=== PATIENT | female | born 1985 | race Caucasian/White ===

== ENCOUNTER 2021-02-23 14:59 | Outpatient (REF) | payer OTHER, SELFPAY ==
[2021-02-23 16:42] LABS: HCG Quantitative < 2 mIU/mL; Thyroid Stimulating Hormone 1.46 uIU/mL (0.32-4.0)
[2021-02-24 04:19] LABS: Syphilis Screen Nonreactive (Nonreactive)
[2021-02-24 04:25] LABS: HBc Num1 0.05 S/CO (0.00-0.79); Hepatitis B Core Antibody Nonreactive (Nonreactive); ~HepC Num1 0.06 S/CO (0.00-0.79); ~Hepatitis C Antibody Nonreactive (Nonreactive)
[2021-02-24 04:27] LABS: HIV AB/AG Nonreactive (Nonreactive); HIV Num 1 0.06 S/CO (0.00-0.99)
[2021-02-24 04:52] LABS: CT PCR NOT DETECTED (Not Detect.); NG PCR NOT DETECTED (Not Detect.)
[2021-02-24 15:26] LABS: DHEA Sulfate 196 mcg/dL (23-266)
[2021-02-24 15:51] LABS: Prolactin 9.1 ng/mL
[2021-02-27 16:51] LABS: Testosterone, Free 7.9 pg/mL (0.1-6.4); Testosterone, Total 60 ng/dL (2-45)
[2021-02-28 14:07] LABS: HPV mRNA E6/E7 rflx Not Detected (Not Detected)
== END 2021-02-23 15:00 | disposition home or self-care (01) ==
LOC: HO.LAB 14:59
PROVIDERS: PCP Internal Medicine; Visit Provider Advanced Practice Midwife
DX: Z01.411 Encounter for gynecological examination (general) (routine) with abnormal findings (principal); Z11.51 Encounter for screening for human papillomavirus (HPV); N92.6 Irregular menstruation, unspecified; Z20.2 Contact with and (suspected) exposure to infections with a predominantly sexual mode of transmission
CPT/HCPCS: 36415; 82627; 83498; 84146; 84402; 84403; 84443; 84702; 86704; 86780; 86803; 87389; 87491; 87591; 87624; 88142

== ENCOUNTER 2021-03-01 15:50 | Outpatient (REF) | payer OTHER, SELFPAY ==
--- NOTE | ~2021-03-01 | US_ITS ---
EXAMINATION: US PELVIS ULTRASOUND CLINICAL INFORMATION: Irregular menstruation, N92.6. Age 35. LMP 01/09/2021. COMPARISON: Obstetrical ultrasound 07/04/2007. TECHNIQUE: Ultrasound of the pelvis is performed using both transabdominal and transvaginal transducers along with Doppler. Transvaginal imaging is performed due to inadequate visualization transabdominally. FINDINGS: Uterus: The uterus is anteverted and measures 10.2 x 3.2 x 3.9 cm. The double wall endometrial thickness is 6 mm. The uterus is smooth in contour and has normal myometrial echogenicity. No visible fibroid. The endometrial echogenicity is homogeneous. No fluid in uterine cavity. Adnexa: Both ovaries are visualized. There is normal color flow to the adnexa. There is no ovarian torsion. There is no pelvic ascites or fluid collection. Right ovary measures 3.4 x 1.6 x 1.8 cm. Volume 5 mL. Left ovary measures 1.9 x 1.5 x 1.5 cm. Volume 2 mL. US/US pelvic and transvaginal IMPRESSION: Normal study.
== END 2021-03-01 15:51 | disposition home or self-care (01) ==
LOC: HO.US 15:50
PROVIDERS: PCP Internal Medicine; Visit Provider Advanced Practice Midwife
DX: N92.6 Irregular menstruation, unspecified (principal)
CPT/HCPCS: 76830; 76856

== ENCOUNTER → 2021-03-09 11:46 | Outpatient (BNVA) | payer OTHER, SELFPAY | PROVIDERS: PCP Internal Medicine; Visit Provider Advanced Practice Midwife ==

== ENCOUNTER → 2021-08-09 10:57 | Outpatient (BNVA) | payer OTHER, SELFPAY | PROVIDERS: Visit Provider Advanced Practice Midwife | DX: Z30.41 Encounter for surveillance of contraceptive pills (principal) | CPT/HCPCS: 99212 ==

== ENCOUNTER 2021-10-26 08:35 | Outpatient (REF) | payer OTHER, SELFPAY ==
[2021-10-26 08:56] LABS: COVID-19 Test Negative (Negative); IDNOW Serial# 16C4AD1C
== END 2021-10-26 08:36 | disposition home or self-care (01) ==
LOC: HO.LAB 08:35
PROVIDERS: Visit Provider Internal Medicine
DX: Z20.822 Contact with and (suspected) exposure to COVID-19 (principal)
CPT/HCPCS: 87635; C9803

== ENCOUNTER 2021-10-30 09:52 | Outpatient (REF) | payer OTHER, SELFPAY ==
[2021-10-30 10:19] LABS: Binax Internal Control QC Valid; Binax Now Covid-19 Ag Positive (Negative)
== END 2021-10-30 09:53 | disposition home or self-care (01) ==
LOC: HO.LAB 09:52
PROVIDERS: Visit Provider Internal Medicine
DX: Z20.822 Contact with and (suspected) exposure to COVID-19 (principal)
CPT/HCPCS: C9803

== ENCOUNTER 2022-04-19 14:48 | Outpatient (REF) | payer OTHER, SELFPAY ==
[2022-04-20 04:58] LABS: CT PCR NOT DETECTED (Not Detect.); NG PCR NOT DETECTED (Not Detect.)
== END 2022-04-19 14:49 | disposition home or self-care (01) ==
LOC: HO.LAB 14:48
PROVIDERS: Visit Provider Advanced Practice Midwife
DX: Z20.2 Contact with and (suspected) exposure to infections with a predominantly sexual mode of transmission (principal)
CPT/HCPCS: 87491; 87591

== ENCOUNTER 2023-06-26 10:04 | Outpatient (REF) | payer OTHER, SELFPAY ==
[2023-06-26 18:35] LABS: CT PCR NOT DETECTED (Not Detect.); NG PCR NOT DETECTED (Not Detect.)
[2023-06-27 14:30] LABS: BV Int Neg Control Negative (Negative); BV Int Pos Control Positive (Positive)
== END 2023-06-26 10:05 | disposition home or self-care (01) ==
LOC: HO.LAB 10:04
PROVIDERS: PCP Internal Medicine; Visit Provider Advanced Practice Midwife
DX: Z20.2 Contact with and (suspected) exposure to infections with a predominantly sexual mode of transmission (principal); N92.6 Irregular menstruation, unspecified; E28.2 Polycystic ovarian syndrome
CPT/HCPCS: 0353U; 87480; 87510; 87660; 99395

== ENCOUNTER 2023-06-26 10:04 | Outpatient (AMB) | payer OTHER, SELFPAY ==
--- NOTE | 2023-06-26 10:06 | MHC.OFFVIS ---
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 Scribed for TINY Hastings by Hannah Bajwa medical services assistant, on 06/26/2023 at 10:17 am EST Supervisor Industrial Garment: Supervisor Industrial Garment Present (Erna) Allergies No Known Allergies Allergy (Verified 06/26/23 10:06) Is last menstrual period known: Yes Last menstrual period: 06/17/23 HPI HPI Comments History of Present Illness Details She is a premenopausal woman presenting for annual exam. Doing well with no tool trouble shooter concerns. She admits to eating healthy and tries to stay active with exercise. Currently sexually active. She in not interested in BC and is interested in future . Hx of PCOS, skips menses up to 3 months, currently her cycles are regular. Denies vaginal itching and irritation. STD screening offered; she accepts. Denies family hx of breast, colon and ovarian cancer. Last pap smear 02/23/21. 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[employer] Gender identity: Female Female Reproductive History Menstrual Age of Menarche: 15 Duration of menses: 3-5 days Date of last menstrual period: 06/17/23 Total pregnancies: 1 Full term: 1 Number of Living Children: 1 Date of last pap smear: 02/23/21 (neg pap and hpv) Physical Exam Vital Signs: Last Vital Signs BP 100/64 06/26/23 10:07 BMI result Body Mass Index 32.3 Const General: cooperative, healthy appearing, no acute distress, well developed and alert Orientation/consciousness: patient oriented x3 HEENT Head: Yes normal to inspection Eyes General: appearance normal, both eyes and all related structures Neck Neck: Yes normal visual inspection Thyroid: Thyroid normal Chest Chest palpation & inspection: normal inspection of the chest Breast/axilla inspection: normal inspection of the breasts (no puckering, dimpling, peau de orange, retraction, discharge, masses) Breast/axilla palpation: normal palpation of the breasts Resp Effort & Inspection: normal respiratory effort GI Inspection: Yes normal to inspection Palpation (GI): Soft to palpation (to palpation) Rectal Exam - Female: deferred General: Yes bladder normal to inspection External Female Exam: normal external appearance and normal appearance of the urethra Speculum Exam - Vagina: normal appearance of the vagina, normal palpation and abnormal vaginal discharge white and frothy Speculum Exam - Cervix: normal appearance of the cervix and normal palpation Bimanual exam- vagina & uterus: normal palpation and normal palpation Bimanual Exam- Adnexa, other: normal adnexae and no masses Skin General skin exam: no rashes or lesions noted Neuro General: patient oriented x3 Cognition (Neuro): normal cognition Extrem General: Yes normal to inspection Psych Attitude: cooperative Thought process: Normal thought process present Assessment & Plan Assessment & Plan (1) Encounter for well woman exam: Code(s): Z01.419 - Encounter for gynecological examination (general) (routine) without abnormal findings Plan: Discussed: Current recommendations for pap smears per ASCCP guidelines. Breast awareness and periodic self breast exams. Maintaining a healthy lifestyle including a well balanced diet and routine exercise. All of her questions and concerns were addressed to the best of my ability. RTO in one year for AG. (2) Pre-conception counseling: Code(s): Z31.69 - Encounter for other general counseling and advice on procreation Plan: Start PNV. Rx sent to pharmacy. Monitor menses and ovulation to help plan future . If missed menses, take at home test. If positive RTO for further evaluation. Check regular monthly home PT testing. (3) Irregular menses: Code(s): N92.6 - Irregular menstruation, unspecified Plan: Rx sent to pharmacy. Discussed importance of cycles <3months apart. Use and frequency of Provera for the prevention of hyperplasia, atypia and possible uterine cancer with chronic annovulatory cycles. (4) Potential exposure to STD: Code(s): Z20.2 - Contact with and (suspected) exposure to infections with a predominantly sexual mode of transmission Plan: BV testing and GC/CT panel done today. Await results and treat accordingly. (5) PCOS (polycystic ovarian syndrome): Code(s): E28.2 - Polycystic ovarian syndrome Orders: Orders Bacterial Vaginosis Panel Today Z20.2 - Contact with and (suspected) exposure to infections with a predominantly sexual mode of transmission CT NG by PCR Today Z20.2 - Contact with and (suspected) exposure to infections with a predominantly sexual mode of transmission Medications: New medroxyprogesterone (Provera) 10 mg PO DAILY 10 days 10 tabs 6RF Refilled PN [id number] 400 mcg-35 mg- 25 mg-5 mg ( Gummies) 1 tab PO DAILY 90 tabs 4RF Coding Level of Care Code Est Pt Prev Care 18-39y(25076) Diagnoses Encounter for well woman exam Z01.419 Pre-conception counseling Z31.69 Irregular menses N92.6 Potential exposure to STD Z20.2 PCOS (polycystic ovarian syndrome) E28.2
[2023-06-26 10:07] VITALS: BP 100/64; BMI 32.3
== END 2023-06-26 10:33 | disposition home or self-care (01) ==
PROVIDERS: PCP Internal Medicine; Visit Provider Advanced Practice Midwife
DX: Z01.419 Encounter for gynecological examination (general) (routine) without abnormal findings (principal); Z31.69 Encounter for other general counseling and advice on procreation; N92.6 Irregular menstruation, unspecified; Z20.2 Contact with and (suspected) exposure to infections with a predominantly sexual mode of transmission; E28.2 Polycystic ovarian syndrome
CPT/HCPCS: 99395

== ENCOUNTER 2023-06-26 10:27 | Outpatient (REF) | payer OTHER, SELFPAY | END 2023-06-26 10:28 | disposition home or self-care (01) | LOC: HO.LNP 10:27 | PROVIDERS: Visit Provider Advanced Practice Midwife | DX: Z13.89 Encounter for screening for other disorder (principal) ==

== ENCOUNTER 2023-07-12 07:56 | Outpatient (REF) | payer OTHER, SELFPAY ==
[2023-07-12 09:20] LABS: Alanine Aminotransferase 38 U/L (0-31); Albumin Level 4.3 g/dL (3.5-5.0); Alkaline Phosphatase 90 U/L (39-117); Anion Gap 15 (12-20); Aspartate Amino Transferase 30 U/L (5-31); Bilirubin Total 1.1 mg/dL (0.0-1.0); Blood Urea Nitrogen 10 mg/dL (9-16); Calcium 9.8 mg/dL (8.4-10.2); Carbon Dioxide 25 mmol/L (22-29); Chloride 104 mmol/L (96-108); Cholesterol 204 mg/dL (<200); Estimated Glomerular Filt Rate > 60; Glucose Random 144 mg/dL (60-115); HDL Cholesterol 48 mg/dL (>40); LDL Cholesterol Calculated 134 mg/dL (<100); Potassium 4.3 mmol/L (3.3-5.1); Sodium 140 mmol/L (135-145); Total Protein 7.7 g/dL (6.5-8.0); Triglycerides 110 mg/dL (<150)
[2023-07-12 09:38] LABS: TSH reflex Free T4 0.98 uIU/mL (0.32-4.0); Vitamin D 25-OH Total 23.4 ng/mL (>30)
== END 2023-07-12 07:57 | disposition home or self-care (01) ==
LOC: HO.LAB 07:56
PROVIDERS: PCP Internal Medicine; Visit Provider Nurse Practitioner Family
DX: Z13.21 Encounter for screening for nutritional disorder (principal); Z13.0 Encounter for screening for diseases of the blood and blood-forming organs and certain disorders involving the immune mechanism; Z13.29 Encounter for screening for other suspected endocrine disorder; E78.00 Pure hypercholesterolemia, unspecified; N39.0 Urinary tract infection, site not specified
CPT/HCPCS: 36415; 80053; 80061; 81001; 82306; 84443; 85025

== ENCOUNTER 2023-09-18 10:41 | Outpatient (AMB) | payer OTHER, SELFPAY ==
[2023-09-18 10:55] VITALS: BP 112/84; PULSE 78; BMI 31.5
--- NOTE | 2023-09-18 10:55 | A.OFFPC_ITS ---
Vital Signs 09/18/23 10:55 Height 5 ft 5 in Weight 189 lb 8 oz BMI 31.5 BP 112/84 Blood Pressure Location Lt brachial Position Sitting Pulse 78 Pulse Source Palpation Intake Visit Reasons: High Fasting Blood Sugar Intake Note: Pt is here for lab F/U. 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 Required: No Accompanied by: Self / Same As Patient Allergies No Known Allergies Allergy (Verified 09/18/23 11:16) Medication List - Last Reconciled 09/18/23 by Carlton Carson PA-C medroxyprogesterone (Provera) 10 mg PO DAILY 10 days [id number] acid 29 mg iron- 1 mg ( 19) 1 tab PO DAILY 90 days sertraline 50 mg (1/2 x 100 mg) PO DAILY 90 days sulfamethoxazole-trimethoprim 800-160 mg (Bactrim DS) 1 tab PO BID Tobacco use date assessed: 09/18/23 Dental Screening Dental Screen Date: 09/18/23 Did you have a dental visit in the last 12 months?: Yes Did you have a dental problem in the last 6 months where you did not have access to dental care?: No Was dental information given to patient?: Patient has dentist HPI High Fasting Blood Sugar HPI Details Patient is a 38-year-old female here today for problem visit. Believes her fasting blood sugar was elevated though this was a random blood sugar at 144. A1c-5.6 acceptable not in the diabetic range. She does have PCOS and has elevated testosterone. Fortunately has lost weight since last office visit. [facility] Medical History PCOS (polycystic ovarian syndrome) Obesity (BMI 30-39.9) Irregular menses Anxiety and depression Vitamin D deficiency Hypercholesterolemia Gestational diabetes Kawasaki disease Surgical History No history of previous surgery Family History Mother Hypertension Anxiety Father Diabetes Social History Housing: Apartment Alcohol intake: current Alcohol intake frequency: holidays/special occasions only Patient Tobacco Use Status: Never used Tobacco e-Cigarette/Vaping Use: Never Used Substance Use Type: Marijuana Current occupational status: employed 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 1. Little interest or pleasure in doing things: not at all 2. Feeling down, depressed, or hopeless: not at all 3. Trouble falling or staying asleep, or sleeping too much: not at all 4. Feeling tired or having little energy: not at all 5. Poor appetite or overeating: not at all 6. Feeling bad about yourself - or that you are a failure or have let yourself or your family down: not at all 7. Trouble concentrating on things, such as reading the newspaper or watching television: not at all 8. Moving or speaking so slowly that other people could have noticed. Or the opposite - being so fidgety or restless that you have been moving around a lot more than usual: not at all 9. Thoughts that you would be better off or of hurting yourself in some way: not at all Total score: 0 Depression Screening Interpretation: Negative Depression Screening Done: Yes 09327 - PHQ-9 Billing: Yes Source: Developed by Drs. Anselmo Davenport, Adalgisa Kelsey, Vicente Stephens and colleagues, with an educational cuate from [employer]. Thrive Questionnaire Date Thrive assessed: 09/18/23 I am a: Patient What is your living situation today?: I have a steady place to live Within the past 12 months, did the food you bought not last and you didn't have the money to get more?: Never true Within the past 12 months, did you worry whether your food would run out before you got money to buy more?: Never true Do you have trouble paying for medicines?: No Do you have trouble getting transportation to medical appointments?: No Do you have trouble paying your heating and electricity bill?: No Do you have trouble taking care of your child, family member or friend?: No Do you have trouble with day-to-day activities such as bathing, preparing meals, shopping, managing finances, etc.?: No Are you currently unemployed and looking for a job?: No Are you interested in more education?: No Please select the resources that you would like help with: None Currently or been in a relationship where the following occur: no concerns reported AUDIT C Alcohol Use Questionnaire (AUDIT-C) 1. How often do you have a drink containing alcohol?: Monthly or less 2. How many drinks containing alcohol do you have on a typical day when you are drinking?: 1 or 2 Total Score: 1 DIO-7 AMB Questionnaire DIO-7 Date IDO - 7 assessed: 09/18/23 Feeling nervous, anxious, or on edge: 0 = Not at all Not being able to stop or control worryin = Not at all Worrying too much about different things: 0 = Not at all Trouble relaxin = Not at all Being so restless that it is hard to sit still: 0 = Not at all Becoming easily annoyed or irritable: 0 = Not at all Feeling afraid as if something awful might happen: 0 = Not at all Total DIO-7 score (0-4 normal; 5-9 mild; 10-14 moderate; 15-21 severe): 0 Source: Developed by Drs. Anselmo Davenport, Adalgisa Kelsey, Vicente Stephens and colleagues, with an educational cuate from [employer]. DIO-7 Assessment Billing DIO-7 Assessment Tool: DIO-7 Assessment 92085 Review of Systems Const Denies headache(s) Eyes Denies loss of vision ENT Denies vertigo, Denies dizziness, Denies headache(s) and Denies sore throat Card Denies chest pain, Denies leg edema and Denies lightheadedness Resp Denies cough, Denies hemoptysis and Denies wheezing GI Denies abdominal pain, Denies melena, Denies constipation, Denies diarrhea and Denies vomiting Denies urinary frequency, Denies dysuria and Denies urinary urgency Musc Denies arthralgias, Denies joint swelling, Denies numbness and Denies tingling Neuro Denies Abnormal speech present, Denies behavioral changes, Denies vertigo, Denies dizziness, Denies headache(s), Denies loss of vision, Denies memory loss, Denies numbness and Denies tingling Psych Denies anxiety, Denies behavioral changes, Denies depression, Denies memory loss and Denies panic attacks Subhash/Lymph Denies easy bleeding and Denies easy bruising Aller/Immun Denies wheezing Physical exam (Primary Care) Vital Signs: Last Vital Signs Pulse 78 09/18/23 10:55 BP 112/84 09/18/23 10:55 BMI result Body Mass Index 31.5 Tobacco/Smoking Status: Tobacco use Status Tobacco use date assessed 09/18/23 09/18/23 11:01 Patient Tobacco Use Status Never used Tobacco 09/18/23 10:56 Tobacco use type 06/26/23 10:28 e-Cigarette/Vaping Use Never Used 09/18/23 10:56 PHQ-9: PHQ-9 Score PHQ-9: Total score 0 09/18/23 11:01 Depression Screening Interpretation: Negative Thrive Assessment: Date of Thrive Assessment Date Thrive assessed 09/18/23 09/18/23 11:01 Currently or been in a relationship where the following occur: no concerns reported Const General: healthy appearing, no acute distress, alert and awake Nutritional Appearance: well nourished Orientation/consciousness: oriented to person, oriented to place and oriented to time HENMT Ears: TM's normal bilaterally General nose exam: Normal nasal mucous membranes and turbinates present Eyes Conjunctivae: conjunctivae normal Sclerae: sclerae normal Pupils: Equal, round and reactive pupils present Neck Neck: Yes no lymphadenopathy and Yes no JVD Thyroid: Thyroid normal Carotids: no bruits Resp Effort & Inspection: normal respiratory effort and not tachypneic Auscultation: no crackles, no rales, no rhonchi and no wheezes Cardio Rate: regular rate Rhythm: regular rhythm Heart sounds: no murmurs and normal S1 and S2 GI Palpation (GI): Soft to palpation, nontender, no hepatomegaly and no splenomegaly Auscultation: normal bowel sounds Skin General skin exam: no rashes or lesions noted and dry skin Neuro General: oriented to person, oriented to place and oriented to time Cranial nerves: Yes Equal, round and reactive pupils present Speech: No Abnormal speech present Gait exam (Neuro): Normal gait present Motor exam (neuro): no tremor noted Extrem Right upper extremity: full ROM Left upper extremity: full ROM Right lower extremity: full ROM; no edema Left lower extremity: full ROM; no edema Psych Mental Status: mental status grossly normal Speech and movement: Normal speech and movement present Affect: normal affect Attitude: cooperative Thought process: Normal thought process present Results AMB Hemoglobin A1c AMB Hemoglobin A1c 5.6 % Last Edit by JASVIR Garner on 09/18/23 11:03 Results Reviewed Results Reviewed: Laboratory Last Values Hgb A1c (Clinic) 5.6 % (4.0-6.0) 09/18/23 11:02 Assessment and Plan Assessment & Plan (1) Hypercholesterolemia: Code(s): E78.00 - Pure hypercholesterolemia, unspecified Plan: Most recent lipid panel showing borderline high total cholesterol. She does report she was not fasting for labs. Will reorder to get done before her upcoming annual physical fasting (2) Hyperglycemia: Code(s): R73.9 - Hyperglycemia, unspecified Plan: Most recent random blood sugar 144. A1c at 5.6. not in diabetic range. Advised to do fasting labs to evaluate fasting blood sugar Orders: Orders AMB Hemoglobin A1c Today R73.09 - Other abnormal glucose Comprehensive [place]. Panel Fast Today R73.9 - Hyperglycemia, unspecified Lipid Panel Today E78.00 - Pure hypercholesterolemia, unspecified Coding Level of Care Code Est Pt Level 3 (42320) Diagnoses Hypercholesterolemia E78.00 Hyperglycemia R73.9 Additional Codes DIO-7 Assessment Billing - DIO-7 Assessment Tool: DIO-7 Assessment 24116 ([id number])
== END 2023-09-18 11:23 | disposition home or self-care (01) ==
PROVIDERS: PCP Internal Medicine; Visit Provider Physician Assistant
DX: E78.00 Pure hypercholesterolemia, unspecified (principal); R73.9 Hyperglycemia, unspecified; R73.09 Other abnormal glucose
CPT/HCPCS: 83036; 99213

== ENCOUNTER 2023-09-27 08:04 | Outpatient (REF) | payer OTHER, SELFPAY ==
[2023-09-27 10:56] LABS: Alanine Aminotransferase 26 U/L (0-31); Albumin Level 4.4 g/dL (3.5-5.0); Alkaline Phosphatase 78 U/L (39-117); Anion Gap 11 (12-20); Aspartate Amino Transferase 21 U/L (5-31); Blood Urea Nitrogen 10 mg/dL (9-16); Calcium 9.5 mg/dL (8.4-10.2); Carbon Dioxide 29 mmol/L (22-29); Chloride 105 mmol/L (96-108); Cholesterol 206 mg/dL (<200); Estimated Glomerular Filt Rate > 60; Glucose Fasting 93 mg/dL (60-99); HDL Cholesterol 48 mg/dL (>40); LDL Cholesterol Calculated 137 mg/dL (<100); Potassium 3.8 mmol/L (3.3-5.1); Sodium 141 mmol/L (135-145); Total Protein 7.7 g/dL (6.5-8.0); Triglycerides 105 mg/dL (<150)
[2023-09-27 11:19] LABS: Vitamin D 25-OH Total 34.4 ng/mL (>30)
== END 2023-09-27 08:05 | disposition home or self-care (01) ==
LOC: HO.10HDL 08:04
PROVIDERS: Nurse Practitioner Family; Visit Provider Physician Assistant
DX: E78.00 Pure hypercholesterolemia, unspecified (principal); R73.9 Hyperglycemia, unspecified; E55.9 Vitamin D deficiency, unspecified
CPT/HCPCS: 36415; 80053; 80061; 82306

== ENCOUNTER 2023-10-01 13:32 | Outpatient (AMB) | payer OTHER, SELFPAY ==
[2023-10-01 13:36] VITALS: BP 116/84; PULSE 54; O2SAT 99; BMI 31.6
--- NOTE | 2023-10-01 13:36 | MHC.PC.OV ---
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 Required: No Accompanied by: Self / Same As Patient Allergies No Known Allergies Allergy (Verified 10/01/23 13:37) Medication List - Last Reconciled 10/01/23 by Conrad Simmons MD medroxyprogesterone (Provera) 10 mg PO DAILY 10 days [id number] acid 29 mg iron- 1 mg ( 19) 1 tab PO DAILY 90 days sertraline 50 mg (1/2 x 100 mg) PO DAILY 90 days Tobacco use date assessed: 09/18/23 Dental Screening Dental Screen Date: 10/01/23 Did you have a dental visit in the last 12 months?: Yes Did you have a dental problem in the last 6 months where you did not have access to dental care?: No Was dental information given to patient?: Patient has dentist HPI Annual Exam HPI Details 38-year-old obese female with hypercholesterolemia and generalized anxiety disorder coming in for physical exam last seen in January 2021. [facility] Medical History (Updated 10/01/23 @ 14:25 by Conrad Simmons MD) Hyperglycemia Encounter to discuss test results Potential exposure to STD Encounter for annual routine gynecological examination PCOS (polycystic ovarian syndrome) Obesity (BMI 30-39.9) Irregular menses Anxiety and depression Vitamin D deficiency Hypercholesterolemia Gestational diabetes Kawasaki disease Surgical History No history of previous surgery Family History Mother Hypertension Anxiety Father Diabetes Social History (Updated 10/01/23 @ 14:26 by Conrad Simmons MD) Housing: Apartment Alcohol intake: current Alcohol intake frequency: holidays/special occasions only Comment: holiday 2 drinks Patient Tobacco Use Status: Never used Tobacco Years Smoked: MArijuana e-Cigarette/Vaping Use: Never Used Substance Use Type: Marijuana Current occupational status: employed 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 Anselmo Davenport, Adalgisa Kelsey, Vicente Stephens and colleagues, with an educational cuate from [employer]. Review of Systems Const Denies poor appetite and Denies weakness Eyes Denies no additional complaints ENT Reports Normal hearing present, Denies dizziness, Denies nasal congestion, Denies tinnitus and Denies sore throat Card Denies chest pain, Denies syncope, Denies rapid heart rate and Denies dyspnea Resp Denies cough and Denies dyspnea GI Denies change in stool character, Reports constipation, Denies diarrhea, Denies nausea and Denies vomiting Denies urinary frequency, Denies difficulty voiding and Denies dysuria Neuro Reports Normal hearing present, Denies confusion, Denies dizziness, Denies syncope and Denies weakness Psych Denies confusion Physical exam (Primary Care) Vital Signs: Last Vital Signs Pulse 54 10/01/23 13:36 BP 116/84 10/01/23 13:36 Pulse Ox 99 10/01/23 13:36 Oxygen Delivery Method Room Air 10/01/23 13:36 BMI result Body Mass Index 31.6 Tobacco/Smoking Status: Tobacco use Status Tobacco use date assessed 09/18/23 10/01/23 13:41 Patient Tobacco Use Status Never used Tobacco 10/01/23 13:41 Tobacco use type 06/26/23 10:28 e-Cigarette/Vaping Use Never Used 10/01/23 13:41 Thrive Assessment: Date of Thrive Assessment Date Thrive assessed 09/18/23 10/01/23 13:41 Const General: No confusion Orientation/consciousness: No confusion HENMT Head: Yes normocephalic Ears: external ears normal and TM's normal bilaterally Face and sinus: Yes normal facial exam Mouth: moist mucous membranes Throat: Yes tonsils normal Eyes Conjunctivae: conjunctivae normal Pupils: Equal, round and reactive pupils present and Pupil accommodation reflex normal Direct Ophthalmoscopy: normal light reflex Neck Neck: No lymphadenopathy Thyroid: Thyroid normal Chest Chest palpation & inspection: normal inspection of the chest Resp Effort & Inspection: normal respiratory effort and no audible wheezes Auscultation: clear to auscultation bilaterally, no crackles, no wheezes and lung sounds not diminished Cardio Rate: regular rate Rhythm: regular rhythm Peripheral pulses: radial pulses present and dorsalis pedis present GI Palpation (GI): no masses Auscultation: normal bowel sounds and normoactive bowel sounds Rectal Exam - Female: deferred Skin General skin exam: no rashes or lesions noted Rashes: no rashes Neuro General: No confusion Cranial nerves: Yes Equal, round and reactive pupils present and Yes Normal hearing present Cognition (Neuro): normal cognition Gait exam (Neuro): Normal gait present Motor exam (neuro): 5/5 motor strength present throughout Deep tendon reflexes (DTR's): Right brachioradialis reflex intensity grade: 2+, Left brachioradialis reflex intensity grade: 2+, Right patellar reflex intensity grade: 2+ and Left patellar reflex intensity grade: 2+ Extrem General: No edema Office Procedures Flu Questionnaire Does the patient have a severe egg allergy?: No Does the patient have severe life threatening allergies?: No Does the patient have a fever or illness today?: No Has the patient ever had Guillain-[place] Syndrome?: No Has the patient ever had any past reaction to a flu shot?: No Immunizations flu vacc [id number] 6mos up(PF) 60 mcg(15 mcgx4)/0.5 mL IM syringe Performing Provider: Conrad Simmons MD [facility] Administered by: Anabel Turk CMA on 10/01/23 13:45 Dose Route Admin Location Dispensed Lot Number Expiration Date NDC Director Of Professional Services 0.5 mL IM Left Deltoid 0.5 mL [id number] 04/05/24 [id number] 3Funnel VIS Given Date VIS Provided VIS Publication Date 10/01/23 Single Vaccine 21 Eligibility Eligibility Date Funding Source Not [facility] Eligible 10/01/23 Private Assessment and Plan Assessment & Plan (1) Annual physical exam: Code(s): Z00.00 - Encounter for general adult medical examination without abnormal findings (2) Obesity (BMI 30-39.9): Code(s): E66.9 - Obesity, unspecified Plan: Diet and exercise (3) Hypercholesterolemia: Code(s): E78.00 - Pure hypercholesterolemia, unspecified Plan: Avoid fried foods, chicken skin, eggs, butter margarine, pastries and meat. Be it pork or beef they have a lot of cholesterol LDL goal of less than 130 and triglyceride of less than 150 (4) PCOS (polycystic ovarian syndrome): Code(s): E28.2 - Polycystic ovarian syndrome Orders: Orders Influenza [id number] Immunization Today Z23 - Encounter for immunization Coding Level of Care Code Est Pt Prev Care 18-39y(36785) Diagnoses Annual physical exam Z00.00 Obesity (BMI 30-39.9) E66.9 Hypercholesterolemia E78.00 PCOS (polycystic ovarian syndrome) E28.2
== END 2023-10-01 14:35 | disposition home or self-care (01) ==
PROVIDERS: Visit Provider Internal Medicine
DX: Z00.00 Encounter for general adult medical examination without abnormal findings (principal); Z68.31 Body mass index [BMI] 31.0-31.9, adult; E66.9 Obesity, unspecified; Z23 Encounter for immunization; E78.00 Pure hypercholesterolemia, unspecified; E28.2 Polycystic ovarian syndrome
CPT/HCPCS: 90471; 90686; 99395

== ENCOUNTER 2024-05-08 09:34 | Emergency (ER) | payer OTHER, SELFPAY ==
[2024-05-08 09:36] VITALS: BP 129/75; PULSE 84; RESP 16; TEMP 36.6; O2SAT 99; BMI 31.4
[2024-05-08 10:01] LABS: MANUAL DIFF FLAG NO
[2024-05-08 10:02] LABS: UPreg QC Valid YES
[2024-05-08 10:03] LABS: Urine Pregnancy NEGATIVE (NEGATIVE)
[2024-05-08 10:04] LABS: Basophils Absolute Auto 0.1 X10*3/uL (0.0-0.2); Basophils Percent Auto 0.9 % (0-2); Eosinophils Absolute Auto 0.3 X10*3/uL (0.0-0.4); Eosinophils Percent Auto 3.2 % (0-4); Hematocrit 39.8 % (37.0-47.0); Hemoglobin 13.5 g/dl (12.0-16.0); Imm Gran Abs Auto 0.02 X10*3/uL (0.00-0.03); Imm Gran Pct Auto 0.3 % (0.0-0.4); Lymphocytes Absolute Auto 2.4 X10*3/uL (1.2-4.9); Lymphocytes Percent Auto 30.6 % (20-40); Mean Corpuscular HGB Conc 33.9 g/dl (31.0-35.0); Mean Corpuscular Hemoglobin 29.4 pg (27.0-33.0); Mean Corpuscular Volume 86.7 fL (80.0-98.0); Mean Platelet Volume 9.3 fL (9.4-12.3); Monocytes Absolute Auto 0.5 X10*3/uL (0.1-1.2); Monocytes Percent Auto 6.6 % (2-11); Neutrophils Absolute Auto 4.6 x10*3/uL (2.0-8.3); Neutrophils Percent Auto 58.4 % (45-73); Platelet Count 325 X10*3/uL (160-400); Red Blood Count 4.59 X10*6/uL (4.20-5.50); White Blood Count 7.8 X10*3/uL (4.8-10.8)
--- NOTE | 2024-05-08 10:06 | ED_ITS ---
HPI - General Adult General Chief complaint: Vaginal Bleeding Stated complaint: vaginal bleeding Time Seen by Provider: 05/08/24 10:02 History of Present Illness HPI narrative: Patient complains of heavy vaginal bleeding for 1 day Yesterday she was changing a pad every 2 or 3 hours but this morning she woke up and has been changing the pad every 1/2 hour She denies any dizziness or weakness, she has no pelvic or abdominal pain, she does not believe she is she has no burning on urination Related Data Previous Rx's ?Medication ?Instructions ?Recorded medroxyprogesterone 10 mg tablet 10 mg PO DAILY 10 days #10 tabs 06/26/23 (Provera) vitamin no.115-iron 29 1 tab PO DAILY 90 days #90 tabs 06/27/23 mg-folic acid 1 mg chewable tablet ( 19) sertraline 100 mg tablet 50 mg (1/2 x 100 mg) PO DAILY 90 12/03/23 days #45 tabs Allergies Allergy/AdvReac Type Severity Reaction Status Date / Time No Known Allergies Allergy Verified 05/08/24 09:39 [facility] Past Medical History Source: nursing notes reviewed Medical History (Updated 05/08/24 @ 11:34 by NARESH Larson) Hyperglycemia Encounter to discuss test results Potential exposure to STD Encounter for annual routine gynecological examination PCOS (polycystic ovarian syndrome) Obesity (BMI 30-39.9) Irregular menses Anxiety and depression Vitamin D deficiency Hypercholesterolemia Gestational diabetes Kawasaki disease Surgical History No history of previous surgery Family History Family History Mother Hypertension Anxiety Father Diabetes Social History Social History (Updated 10/01/23 @ 14:26 by Conrad Simmons MD) Housing: Apartment Alcohol intake: current Alcohol intake frequency: holidays/special occasions only Comment: holiday 2 drinks Patient Tobacco Use Status: Never used Tobacco Years Smoked: MArijuana e-Cigarette/Vaping Use: Never Used Substance Use Type: Marijuana Advance Directives: No Advance Directives Information Provided: Yes Current occupational status: employed 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 [employer] Gender identity: Female Cognitive needs: No Hearing needs: No Vision needs: No Physical Exam ED Vital Signs: Vital Signs - 24 hr 05/08/24 09:36 Temperature 97.8 F Pulse Rate 84 Respiratory Rate 16 Blood Pressure 129/75 Pulse Oximetry 99 Oxygen Delivery Method Room Air BMI result Body Mass Index 31.4 General appearance comfortable cooperative no acute distress Eyes no pallor Mucous membranes are moist Neck is supple Respiratory no distress Abdomen soft nontender Pelvic exam there is no tenderness in the pelvis Speculum exam shows blood in the vault but it is not hemorrhaging or spilling from the vault Bimanual exam no mass felt, there is no pelvic tenderness no adnexal mass palpated Skin no rash Extremities full range motion times 4 Course Course Course Narrative: Patient remains with stable vital signs repeated just prior to discharge all normal, clinically stable test is negative, UA is negative Chemistries normal CBC shows hemoglobin 13.5 and hematocrit 39.8 consistent with previous, platelets 325 Patient is discharged will call her popcorn candy maker and return if worse Medical Decision Making Lab Data MDM Lab Attestation statement: I reviewed the patient's lab results. 05/08/24 09:50 05/08/24 09:50 Labs: Lab Results 05/08/24 Range/Units 09:50 WBC 7.8 (4.8-10.8) X10*3/uL RBC 4.59 (4.20-5.50) X10*6/uL Hgb 13.5 (12.0-16.0) g/dl Hct 39.8 (37.0-47.0) % MCV 86.7 (80.0-98.0) fL MCH 29.4 (27.0-33.0) pg MCHC 33.9 (31.0-35.0) g/dl RDW 13.0 (11.0-16.0) % Plt Count 325 (160-400) X10*3/uL MPV 9.3 L (9.4-12.3) fL Immature Gran % (Auto) 0.3 (0.0-0.4) % Neut % (Auto) 58.4 (45-73) % Lymph % (Auto) 30.6 (20-40) % [place] % (Auto) 6.6 (2-11) % Eos % (Auto) 3.2 (0-4) % Baso % (Auto) 0.9 (0-2) % Lymph # (Auto) 2.4 (1.2-4.9) X10*3/uL [place] # (Auto) 0.5 (0.1-1.2) X10*3/uL Eos # (Auto) 0.3 (0.0-0.4) X10*3/uL Baso # (Auto) 0.1 (0.0-0.2) X10*3/uL Abs Immat Gran (auto) 0.02 (0.00-0.03) X10*3/uL Absolute Neuts (auto) 4.6 (2.0-8.3) x10*3/uL Absolute Nucleated RBC 0.000 (0.0-0.012) X10*3/uL Nucleated RBC % (auto) 0.0 (0.0-0.2) /100WBC Sodium 142 (135-145) mmol/L Potassium 3.8 (3.3-5.1) mmol/L Chloride 106 (96-108) mmol/L Carbon Dioxide 27 (22-29) mmol/L Anion Gap 13 (12-20) BUN 11 (9-16) mg/dL Creatinine 0.69 (0.5-1.4) mg/dL Estim Creat Clear Calc 121.7 Estimated GFR > 60 Random Glucose 104 (60-115) mg/dL Calcium 10.0 (8.4-10.2) mg/dL Total Bilirubin 0.8 (0.0-1.0) mg/dL AST 30 (5-31) U/L ALT 43 H (0-31) U/L Alkaline Phosphatase 87 (39-117) U/L Total Protein 7.7 (6.5-8.0) g/dL Albumin 4.4 (3.5-5.0) g/dL Beta HCG, Quant < 2 mIU/mL Urine Color Red A Urine Appearance Turbid Urine pH 6.0 (5.0-9.0) Ur Specific [place] >= 1.030 H (1.005-1.025) Urine Protein 100 (2+) H (Neg-Trace) mg/dL Urine Glucose (UA) Negative (Negative) mg/dL Urine Ketones Negative (Negative) mg/dL Urine Blood Large (3+) H (Negative) Urine Nitrite Negative (Negative) Ur Leukocyte Esterase Negative (Negative) Urine RBC >20 H (0-2) /HPF Urine WBC 6-10 (0-5) /HPF Ur Squamous Epith Cells 3-5 (0-2) /HPF Urine Bacteria 1+ (None Seen) Hyaline Casts 0-2 (0-2) /LPF Urine Test NEGATIVE (NEGATIVE) Discharge Plan Discharge Clinical Impression: Vaginal bleeding Patient Disposition: Home, Self-Care Additional Instructions: Your vital signs were stable throughout the ER visit, no clinical signs of excess blood loss Your blood count was normal, hemoglobin was 13.5 and hematocrit was 39.8 Follow with your popcorn candy maker Signs of losing too much blood are feeling dizzy or weak or rapid racing pulse or feeling faint Return to the ER any time for any worse condition or any concerns Prescriptions: No Action 19 29 mg iron- 1 mg tablet,chewable 1 tab PO DAILY 90 Days Qty: 90 1RF sertraline 100 mg tablet 50 mg PO DAILY 90 Days Qty: 45 1RF medroxyprogesterone [Provera] 10 mg tablet 10 mg PO DAILY 10 Days Qty: 10 6RF Print Language: Urdu
[2024-05-08 10:09] LABS: Appearance Urine Turbid; Glucose Urine UA Negative (Negative); Leukocyte Esterase Urine Negative (Negative); Nitrite Urine Negative (Negative); Specific Gravity - Urine >= 1.030 (1.005-1.025); UMIC TRIGGER UACC YES; Urine Blood Large (3+) (Negative); Urine Ketones Negative (Negative); Urine Protein 100 (2+) mg/dL (Neg-Trace)
[2024-05-08 10:17] LABS: Color Urine Red
[2024-05-08 10:20] LABS: Bacteria Urine 1+ (None Seen); Hyaline Casts Urine 0-2 /LPF (0-2); RBC Urine >20 /HPF (0-2); UACC Culture Trigger YES
[2024-05-08 10:32] LABS: Alanine Aminotransferase 43 U/L (0-31); Albumin Level 4.4 g/dL (3.5-5.0); Alkaline Phosphatase 87 U/L (39-117); Anion Gap 13 (12-20); Aspartate Amino Transferase 30 U/L (5-31); Bilirubin Total 0.8 mg/dL (0.0-1.0); Blood Urea Nitrogen 11 mg/dL (9-16); Carbon Dioxide 27 mmol/L (22-29); Chloride 106 mmol/L (96-108); Creatinine Clr Calc Pharmacy 121.7; Estimated Glomerular Filt Rate > 60; Glucose Random 104 mg/dL (60-115); Potassium 3.8 mmol/L (3.3-5.1); Sodium 142 mmol/L (135-145); Total Protein 7.7 g/dL (6.5-8.0)
[2024-05-08 10:33] LABS: HCG Quantitative < 2 mIU/mL
[2024-05-08 11:21] VITALS: BP 123/77; PULSE 70; RESP 16; TEMP 37.2; O2SAT 96
[2024-05-08 11:41] VITALS: BP 123/77; PULSE 70; RESP 16; TEMP 37.2; O2SAT 96
== END 2024-05-08 11:42 | disposition home or self-care (01) ==
PROVIDERS: Emergency Provider Student in an Organized Health Care Education/Training Program; PCP Internal Medicine
DX: N93.9 Abnormal uterine and vaginal bleeding, unspecified (principal); E78.00 Pure hypercholesterolemia, unspecified; E11.9 Type 2 diabetes mellitus without complications; Z79.899 Other long term (current) drug therapy
CPT/HCPCS: 36415; 80053; 81001; 81003; 81025; 84702; 85025; 87086; 99283

== ENCOUNTER 2024-05-18 09:16 | Outpatient (REF) | payer OTHER, SELFPAY ==
[2024-05-19 11:36] LABS: Bacterial Vaginosis PCR POSITIVE (Negative); Candida Group PCR NOT DETECTED (Not Detect); Candida glab krusei PCR NOT DETECTED (Not Detect); Trichomonas vaginalis PCR NOT DETECTED (Not Detect)
[2024-05-19 11:45] LABS: CT PCR NOT DETECTED (Not Detect.); NG PCR NOT DETECTED (Not Detect.)
== END 2024-05-18 09:17 | disposition home or self-care (01) ==
LOC: HO.LAB 09:16
PROVIDERS: PCP Internal Medicine; Visit Provider Advanced Practice Midwife
DX: N89.8 Other specified noninflammatory disorders of vagina (principal); Z20.2 Contact with and (suspected) exposure to infections with a predominantly sexual mode of transmission; E28.2 Polycystic ovarian syndrome; N92.6 Irregular menstruation, unspecified; Z30.431 Encounter for routine checking of intrauterine contraceptive device; Z30.09 Encounter for other general counseling and advice on contraception
CPT/HCPCS: 0352U; 87491; 87591; 99212

== ENCOUNTER 2024-05-18 09:16 | Outpatient (AMB) | payer OTHER, SELFPAY ==
[2024-05-18 09:11] VITALS: BP 118/70; BMI 31.1
--- NOTE | 2024-05-18 09:11 | A.OFFVIS_ITS ---
Vital Signs 05/18/24 09:11 Height 5 ft 5 in Weight 187 lb BMI 31.1 BP 118/70 Intake Visit Reasons: Er follow up Car Mover Required: No Information Interpreted: clinical only Relief Master: Relief Master Present Allergies No Known Allergies Allergy (Verified 05/18/24 09:13) Medication List - Last Reconciled 05/18/24 by Marilyn Dyer CNM sertraline 50 mg (1/2 x 100 mg) PO DAILY 90 days Is last menstrual period known: Yes Last menstrual period: 05/12/24 Do you need a note to return to daycare/school/sports/work: No HPI HPI Er follow up: Details: Is here as follow-up from the emergency. She had a heavier than normal period, and went to the emergency room. They checked her hct and it was fine and said to follow-up with us, in addition she was not bleeding that have every on their speculum exam. She has a history of PCOS when she lost weight after having her child and c utting out soda and sugary drinks her periods came back to normal and she did not need to take Provera that was prescribed her some years ago. She normally sees Ary for her annual exams. She is not on control and does not really want to be her current partner who she has been seeing for the last few months has a vasectomy so she does not need control either and he has children and she has a child so she has decided she has good. [facility] Medical History (Updated 05/18/24 @ 09:57 by Marilyn Dyer CNM) Potential exposure to STD Hyperglycemia Encounter to discuss test results Encounter for annual routine gynecological examination PCOS (polycystic ovarian syndrome) Obesity (BMI 30-39.9) Irregular menses Anxiety and depression Vitamin D deficiency Hypercholesterolemia Gestational diabetes Kawasaki disease Surgical History No history of previous surgery Family History Mother Hypertension Anxiety Father Diabetes Social History Housing: Apartment Alcohol intake: current Alcohol intake frequency: holidays/special occasions only Comment: holiday 2 drinks Patient Tobacco Use Status: Never used Tobacco Years Smoked: MArijuana e-Cigarette/Vaping Use: Never Used Substance Use Type: Marijuana Current occupational status: employed 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 External Female Exam: normal external appearance and normal appearance of the urethra Speculum Exam - Vagina: normal appearance of the vagina Speculum Exam - Cervix: normal appearance of the cervix and Cervical os closed Results Reviewed Results Reviewed: [place] [id number] Ultrasound Report Signed Patient: Lupe Vazquez MR#: [id number] : 1985 Acct:[id number] Age/Sex: 35 / F ADM Date: 03/01/21 Loc: HO.US Attending Dr: Ary Duke CNM Ordering Physician: Ary Duke CNM Date of Service: 03/01/21 Procedure(s): US pelvic and transvaginal Accession Number(s): [id number] cc: Ary Duke CNM~ EXAMINATION: US PELVIS ULTRASOUND CLINICAL INFORMATION: Irregular menstruation, N92.6. Age 35. LMP 01/09/2021. COMPARISON: Obstetrical ultrasound 07/04/2007. TECHNIQUE: Ultrasound of the pelvis is performed using both transabdominal and transvaginal transducers along with Doppler. Transvaginal imaging is performed due to inadequate visualization transabdominally. FINDINGS: Uterus: The uterus is anteverted and measures 10.2 x 3.2 x 3.9 cm. The double wall endometrial thickness is 6 mm. The uterus is smooth in contour and has normal myometrial echogenicity. No visible fibroid. The endometrial echogenicity is homogeneous. No fluid in uterine cavity. Adnexa: Both ovaries are visualized. There is normal color flow to the adnexa. There is no ovarian torsion. There is no pelvic ascites or fluid collection. Right ovary measures 3.4 x 1.6 x 1.8 cm. Volume 5 mL. Left ovary measures 1.9 x 1.5 x 1.5 cm. Volume 2 mL. US/US pelvic and transvaginal IMPRESSION: Normal study. Dictated By: SARANYA MORALES MD Signed By: <Electronically signed by SARANYA MORALES MD in OV> 03/02/21 1859 DD/ 4543 TD/TT: Trial Mgr: RODRIGUEZ Name: Lupe Vazquez Age/Sex: 38/F : 1985 Unit#: [id number] Attend Dr: Guicho Yarbrough DO Re05/08/24 Status: [facility] Dis[facility]: SPEC : [id number] JACKY: 05/08/24 STATUS: COMP REQ : [id number] RECD: 05/08/24 [facility] DR: Guicho Yarbrough DO COMP: 05/08/24 ENTERED: 05/08/24 [facility] DR: Generic ED Physician Conrad Simmons MD ORDERED: CBC Auto Diff Test Result Flag Reference WBC 7.8 4.8-10.8 X10*3/uL RBC 4.59 4.20-5.50 X10*6/uL HGB 13.5 12.0-16.0 g/dl HCT 39.8 37.0-47.0 % MCV 86.7 80.0-98.0 fL MCH 29.4 27.0-33.0 pg MCHC 33.9 31.0-35.0 g/dl RDW 13.0 11.0-16.0 % PLT 325 160-400 X10*3/uL MPV 9.3 L 9.4-12.3 fL Neut Pct Auto 58.4 45-73 % ImGran Pct Auto 0.3 0.0-0.4 % Lymp Pct Auto 30.6 20-40 % [place] Pct Auto 6.6 2-11 % Eos Pct Auto 3.2 0-4 % Baso Pct Auto 0.9 0-2 % NRBC Pct Auto 0.0 0.0-0.2 /100WBC ANC Neut Abs # 4.6 2.0-8.3 x10*3/uL ImGran Abs Auto 0.02 0.00-0.03 X10*3/uL Lymph Abs Auto 2.4 1.2-4.9 X10*3/uL [place] Abs Auto 0.5 0.1-1.2 X10*3/uL Eos Abs Auto 0.3 0.0-0.4 X10*3/uL Baso Abs Auto 0.1 0.0-0.2 X10*3/uL NRBC Abs Auto 0.000 0.0-0.012 X10*3/uL Name: Lupe Vazquez Age/Sex: 38/F : 1985 Unit#: [id number] Attend Dr: Deepika Bowen Re07/12/23 Status: DEP REF Location: [facility] Disch: SPEC : [id number] JACKY: 07/12/23 STATUS: COMP REQ : [id number] RECD: 07/12/23 [facility] DR: Deepika Bowen COMP: 07/12/23 ENTERED: 07/12/[address]: Conrad Simmons MD ORDERED: CMP, Lipid Panel, Vitamin D 25-OH, TSH Rflx Test Result Flag Reference Sodium 140 135-145 mmol/L Potassium 4.3 3.3-5.1 mmol/L CL 104 96-108 mmol/L CO2 25 22-29 mmol/L Gap 15 12-20 BUN 10 9-16 mg/dL Creat 0.76 0.5-1.4 mg/dL EGFR > 60 NOTE: For -[place] Citizen individuals, multiply the result by 1.210. Chronic Kidney Disease: Estimated GFR < 60 mL/min/1.73m2 Severe Kidney Disease: Estimated GFR < 15 mL/ min/1.73m2 Glucose, Random 144 H 60-115 mg/dL CA 9.8 8.4-10.2 mg/dL Total Bili 1.1 H 0.0-1.0 mg/dL AST (GOT) 30 5-31 U/L ALT (GPT) 38 H 0-31 U/L Protein, Total 7.7 6.5-8.0 g/dL Alb 4.3 3.5-5.0 g/dL Triglyceride 110 <150 mg/dL Desirable Triglyceride: less than 150 mg/dL Borderline High Triglyceride 150-199 mg/dL High Triglyceride: 200-499 mg/dL Very High Triglyceride: greater than or equal to 5OO mg/dL Cholesterol 204 H <200 mg/dL Desirable Cholesterol: less than 200 mg/dL Borderline High Cholesterol: 200-239 mg/dL High Cholesterol: greater than 239 mg/dL LDL Calculated 134 H <100 mg/dL Desirable LDL: less than 100 mg/dL Near Optimal/Above Optimal LDL: 110-129 mg/dL Borderline High LDL: 130-159 mg/dL High LDL: 160-189 mg/dL Very High LDL: greater than or equal to 190 mg/dL HDL 48 >40 mg/dL Desirable HDL: greater than 40 mg/dL Note: This HDL assay may give artificially low results in patients with liver disease. Alk Phos 90 39-117 U/L Vit D 25-OH Tot 23.4 >30 ng/mL Health Based Reference Values* < 20 ng/mL Deficient 20-30 ng/mL Insufficient > 30 ng/mL Sufficient *Gómez CERNA. N Engl J Med. 2007;357:266-280 Care must be taken in interpreting Vitamin D results from different laboratories and methodologies. Published data demonstrated that results from patients undergoing hemodialysis may show a negative bias when tested with various automated 25-OH vitamin D assays when compared to LC-MS/MS. When testing samples from patients whose predominant form of Vitamin D is Vitamin D2, such as patients receiving Vitamin D2 supplementation, results that are subtherapeutic should be confirmed with another method such as LC-MS/MS. TSH 0.98 0.32-4.0 uIU/mL END OF REPORT Assessment & Plan Assessment & Plan (1) PCOS (polycystic ovarian syndrome): Code(s): E28.2 - Polycystic ovarian syndrome Category: Medical (2) Vaginal discharge: Code(s): N89.8 - Other specified noninflammatory disorders of vagina Category: Medical (3) Potential exposure to STD: Code(s): Z20.2 - Contact with and (suspected) exposure to infections with a predominantly sexual mode of transmission Category: Medical (4) Irregular menses: Comment: History of, along with history of PCOS; resolved with weight loss without use of the Provera. Code(s): N92.6 - Irregular menstruation, unspecified Category: Medical (5) Surveillance for control, intrauterine device: Code(s): Z30.431 - Encounter for routine checking of intrauterine contraceptive device Category: Medical (6) control counseling: Comment: Currently relies on her partner's vasectomy. Code(s): Z30.09 - Encounter for other general counseling and advice on contraception Category: Medical Plan Reviewed her history in detail reviewed the PCOS history and that the weight loss was probably the rosario in her periods becoming normal and regular. Given this discussed being watchful and trying to be aware of this and preventing weight gain future and reviewed that if she does and her periods become irregular than that would need treatment, as she had been prescribed Provera in the past. (she ended up not needing to take the Provera that was prescribed to her because she lost the weight and her periods returned to normal). Currently she does not need control and is happy with her new partner of several months who has a vasectomy and they have decided they are all set as far as future childbearing. Reviewed her yellowish bubbly discharge testing done for gonorrhea chlamydia trichomoniasis Gardnerella and yeast. She has had BV show up in the past if it does show up I would recommend that she treat it as she did in the past as well. If she does not hear from us she may call at the end of the week she is on the portal but can not get into it. She has her annual exam set up. Reviewed her normal H and H and TSH from some years back no further evaluation for menses warranted at this time reviewed the normal life variation Coding Level of Care Code Est Pt Level 3 (09739) Diagnoses PCOS (polycystic ovarian syndrome) E28.2 Vaginal discharge N89.8 Potential exposure to STD Z20.2 Irregular menses N92.6 Surveillance for control, intrauterine device Z30.431 control counseling Z30.09
== END 2024-05-18 09:53 | disposition home or self-care (01) ==
LOC: HO.HWSM 09:16
PROVIDERS: PCP Internal Medicine; Visit Provider Advanced Practice Midwife
DX: E28.2 Polycystic ovarian syndrome (principal); N89.8 Other specified noninflammatory disorders of vagina; Z20.2 Contact with and (suspected) exposure to infections with a predominantly sexual mode of transmission; N92.6 Irregular menstruation, unspecified; Z30.431 Encounter for routine checking of intrauterine contraceptive device; Z30.09 Encounter for other general counseling and advice on contraception
CPT/HCPCS: 99213

== ENCOUNTER 2024-06-30 10:50 | Outpatient (AMB) | payer SELFPAY ==
--- NOTE | 2024-06-30 10:53 | MHC.OFFVIS ---
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 Doing well with no concerns. She tries to eat healthy and stays active with exercise. Regular monthly menses. Seen in the emergency room recently for her an episode of very heavy menstrual bleeding soaking pads 3 in an hour. She reports a last cycle was normal. Currently is sexually active. Current control is vasectomy. She denies vaginal itching and irritation. Denies family history of breast, ovarian or colon cancer. Last pap smear 2020, negative. [facility] Medical History Potential exposure to STD Hyperglycemia Encounter to discuss test results Encounter for annual routine gynecological examination PCOS (polycystic ovarian syndrome) Obesity (BMI 30-39.9) Irregular menses Anxiety and depression Vitamin D deficiency Hypercholesterolemia Gestational diabetes Kawasaki disease Surgical History No history of previous surgery Family History Mother Hypertension Anxiety Father Diabetes Social History (Updated 06/30/24 @ 11:27 by Ary Duke CNM) Housing: Apartment Alcohol intake: current Alcohol intake frequency: holidays/special occasions only Comment: holiday 2 drinks Patient Tobacco Use Status: Never used Tobacco Years Smoked: MArijuana e-Cigarette/Vaping Use: Never Used Substance Use Type: Marijuana Current occupational status: employed Current occupation: [employer] for [employer] Gender identity: Female Cognitive needs: No Hearing needs: No Vision needs: No Female Reproductive History Menstrual Age of Menarche: 15 Date of last menstrual period: 06/19/24 control method: other (vasectomy) Total pregnancies: 1 Full term: 1 Number of Living Children: 1 Date of last pap smear: 02/23/21 (neg pap and hpv) Review of Systems Const All systems reviewed & are unremarkable except as noted in HPI and below Reports as per HPI Eyes Reports no additional complaints ENT Reports no additional complaints Card Reports no additional complaints Resp Reports no additional complaints GI Reports as per HPI and Reports no additional complaints Reports as per HPI Musc Reports no additional complaints Skin/Breast Reports as per HPI Neuro Reports no additional complaints Psych Reports no additional complaints Endo Reports no additional complaints Subhash/Lymph Reports no additional complaints Aller/Immun Reports no additional complaints Physical Exam Vital Signs: Last Vital Signs BP 120/80 06/30/24 11:08 BMI result Body Mass Index 31.1 Const General: cooperative, healthy appearing, no acute distress, well developed and alert Orientation/consciousness: patient oriented x3 HEENT Head: Yes normal to inspection Eyes General: appearance normal, both eyes and all related structures Neck Neck: Yes normal visual inspection Thyroid: Thyroid normal Chest Chest palpation & inspection: normal inspection of the chest and other (no puckering, dimpling, peau de orange, retraction, discharge, masses) Breast/axilla inspection: normal inspection of the breasts Breast/axilla palpation: normal palpation of the breasts Resp Effort & Inspection: normal respiratory effort GI Inspection: Yes normal to inspection Palpation (GI): Soft to palpation Rectal Exam - Female: deferred General: Yes bladder normal to palpation External Female Exam: normal external appearance and normal appearance of the urethra Speculum Exam - Vagina: normal appearance of the vagina, normal palpation and normal vaginal discharge Speculum Exam - Cervix: normal appearance of the cervix and normal palpation Bimanual exam- vagina & uterus: normal bimanual exam, normal palpation, uterine size normal, bladder normal to palpation, normal palpation and non-tender Bimanual Exam- Adnexa, other: no masses Skin General skin exam: no rashes or lesions noted Rashes: no rashes Neuro General: patient oriented x3 Cognition (Neuro): normal cognition Extrem General: Yes normal to inspection Psych Attitude: cooperative Thought process: Normal thought process present Assessment & Plan Assessment & Plan (1) Encounter for well woman exam with routine gynecological exam: Code(s): Z01.419 - Encounter for gynecological examination (general) (routine) without abnormal findings Category: Medical Plan Discussed: Current recommendations for pap smears per ASCCP guidelines. Breast awareness and periodic breast exams. Maintain a healthy lifestyle including a well balanced diet and routine exercise. Monitor menstrual cycles, report any unscheduled bleeding, bleeding episodes <24 days apart or heavy/prolonged menstrual bleeding. Call the office for a follow up for any concerns. Patient verbalizes understanding and agrees to the plan of care. She was given opportunity to ask questions and all questions were answered to the best of my ability. RTO in one year for annual loader malt house examination. This note is constructed using voice recognition software. While every effort has been made to ensure accuracy, campus supervisor errors may have been included. Coding Level of Care Code Est Pt Prev Care 18-39y(62315) Diagnoses Encounter for well woman exam with routine gynecological exam Z01.419
[2024-06-30 11:08] VITALS: BP 120/80; BMI 31.1
== END 2024-06-30 11:38 | disposition home or self-care (01) ==
LOC: HO.HWS 10:50
PROVIDERS: PCP Internal Medicine; Visit Provider Advanced Practice Midwife
DX: Z01.419 Encounter for gynecological examination (general) (routine) without abnormal findings (principal)
CPT/HCPCS: 99395

== ENCOUNTER → 2024-06-30 10:50 | Outpatient (BNVA) | payer OTHER, SELFPAY | PROVIDERS: PCP Internal Medicine; Visit Provider Advanced Practice Midwife | DX: Z01.419 Encounter for gynecological examination (general) (routine) without abnormal findings (principal) | CPT/HCPCS: 99395 ==

== ENCOUNTER 2024-10-02 15:57 | Outpatient (AMB) | payer OTHER, SELFPAY ==
--- NOTE | 2024-10-02 16:10 | MHC.PC.OV ---
Vital Signs 10/02/24 16:21 10/02/24 16:44 Height 5 ft 5 in Weight 191 lb BMI 31.8 BP 130/100 H 120/80 Blood Pressure Location Lt brachial Lt brachial Position Sitting Sitting Pulse 66 Pulse Source Pulse Oximeter Pulse Oximetry (%) 99 Oxygen Delivery Method Room Air Intake Visit Reasons: pe Intake Note: Patient is here today for a physical. Survey Interviewer Required: No Accompanied by: Self / Same As Patient Allergies No Known Allergies Allergy (Verified 10/02/24 16:11) Medication List - Last Reconciled 10/02/24 by Conrad Simmons MD sertraline 50 mg (1/2 x 100 mg) PO DAILY 90 days Tobacco use date assessed: 10/02/24 Dental Screening Dental Screen Date: 10/02/24 Did you have a dental visit in the last 12 months?: Yes Did you have a dental problem in the last 6 months where you did not have access to dental care?: No Was dental information given to patient?: Patient has dentist HPI pe HPI Details 39-year-old obese female coming in for physical exam. presenting with mildly elevated blood glucose and liver enzymes, as well as concerns regarding hypercholesterolemia. In May, his blood glucose was noted to be 104 mg/dL, slightly above the normal fasting range of 70-99 mg/dL, indicating a need for monitoring. In the same period, liver function tests showed mildly elevated levels at 43 (normal <37). These findings necessitate follow-up testing. In September, hypercholesterolemia was recorded with a decrease from a previous level of 163, now at 137 mg/dL, though still slightly above the desired level of less than 130 mg/dL. The patient has a history of vaginal bleeding, previously addressed with gynecological follow-up, which is currently stable. - Vaccinations: Flu shot up to date; tetanus shot up to date - Screening Tests: Routine blood work indicated mildly elevated liver enzymes and blood glucose - lifestyle: Advised on maintaining a healthy diet and regular exercise; discussed potential effects of marijuana usage especially concerning post-operative recovery - Vaccinations: Flu shot up to date; tetanus shot up to date - Screening Tests: Routine blood work indicated mildly elevated liver enzymes and blood glucose - Lifestyle: Advised on maintaining a healthy diet and regular exercise; discussed potential effects of marijuana usage especially concerning post-operative recovery - Substance Use: Denies cigarette use; recent reduction in marijuana use - Alcohol: Consumes approximately two drinks monthly - Lifestyle: Engages in regular exercise and maintains a healthy diet - Family History: Denies family history of heart disease or cancer - Cardiovascular: Denies chest pain, discomfort, or palpitations - Respiratory: Denies waking up short of breath - Gastrointestinal: Denies nausea, vomiting, fever, heartburn; reports normal bowel movements - Genitourinary: Denies problems with urination - Labs: - Blood glucose elevated at 104 mg/dL - Liver enzymes mildly elevated at 43 - Cholesterol at 137 mg/dL, previously 163 in 2020 [facility] Medical History (Updated 10/02/24 @ 16:45 by Conrad Simmons MD) Hyperglycemia Potential exposure to STD Encounter to discuss test results Encounter for annual routine gynecological examination PCOS (polycystic ovarian syndrome) Obesity (BMI 30-39.9) Irregular menses Anxiety and depression Vitamin D deficiency Hypercholesterolemia Gestational diabetes Kawasaki disease Surgical History No history of previous surgery Family History Mother Hypertension Anxiety Father Diabetes Social History Housing: Apartment Alcohol intake: current Alcohol intake frequency: holidays/special occasions only Comment: holiday 2 drinks Patient Tobacco Use Status: Never used Tobacco Years Smoked: MArijuana e-Cigarette/Vaping Use: Never Used Substance Use Type: Marijuana service: No Current occupational status: employed Current occupation: [employer] Gender identity: Female Cognitive needs: No Hearing needs: No Vision needs: No Female Reproductive History Menstrual Age of Menarche: 15 Questionnaire PHQ-9 Over the last 2 weeks, how often have you been bothered by any of the following problems? 1. Little interest or pleasure in doing things: several days 2. Feeling down, depressed, or hopeless: several days 3. Trouble falling or staying asleep, or sleeping too much: several days 4. Feeling tired or having little energy: several days 5. Poor appetite or overeating: not at all 6. Feeling bad about yourself - or that you are a failure or have let yourself or your family down: not at all 7. Trouble concentrating on things, such as reading the newspaper or watching television: several days 8. Moving or speaking so slowly that other people could have noticed. Or the opposite - being so fidgety or restless that you have been moving around a lot more than usual: several days 9. Thoughts that you would be better off or of hurting yourself in some way: not at all Total score: 6 [id number] - PHQ-9 Billing: Yes Source: Developed by Drs. Anselmo Davenport, Adalgisa Kelsey, Vicente Stephens and colleagues, with an educational cuate from [employer]. Thrive Questionnaire Date Thrive assessed: 10/02/24 I am a: Patient What is your living situation today?: I have a steady place to live Within the past 12 months, did the food you bought not last and you didn't have the money to get more?: Never true Within the past 12 months, did you worry whether your food would run out before you got money to buy more?: Never true Do you have trouble paying for medicines?: No Do you have trouble getting transportation to medical appointments?: No Do you have trouble paying your heating and electricity bill?: No Do you have trouble taking care of your child, family member or friend?: No Do you have trouble with day-to-day activities such as bathing, preparing meals, shopping, managing finances, etc.?: No Are you currently unemployed and looking for a job?: No Are you interested in more education?: No Please select the resources that you would like help with: None Currently or been in a relationship where the following occur: No concerns reported THRIVE Score: 0 AUDIT C Alcohol Use Questionnaire (AUDIT-C) 1. How often do you have a drink containing alcohol?: Monthly or less 2. How many drinks containing alcohol do you have on a typical day when you are drinking?: 1 or 2 3. How often do you have six or more drinks on one occasion?: Less than monthly Total Score: 2 DIO-7 AMB Questionnaire DIO-7 Date DIO - 7 assessed: 10/02/24 Feeling nervous, anxious, or on edge: 1 = Several days Not being able to stop or control worryin = Several days Worrying too much about different things: 1 = Several days Trouble relaxin = Several days Being so restless that it is hard to sit still: 1 = Several days Becoming easily annoyed or irritable: 1 = Several days Feeling afraid as if something awful might happen: 1 = Several days Total DIO-7 score (0-4 normal; 5-9 mild; 10-14 moderate; 15-21 severe): 7 Source: Developed by Drs. Anselmo Davenport, Adalgisa Kelsey, Vicente Stephens and colleagues, with an educational cuate from [employer]. DIO-7 Assessment Billing DIO-7 Assessment Tool: DIO-7 Assessment 06557 Review of Systems Const Denies poor appetite and Denies weakness Eyes Denies no additional complaints ENT Reports Normal hearing present, Denies dizziness, Denies nasal congestion, Denies tinnitus and Denies sore throat Card Denies chest pain, Denies syncope, Denies rapid heart rate and Denies dyspnea Resp Denies cough and Denies dyspnea GI Denies change in stool character, Reports constipation, Denies diarrhea, Denies nausea and Denies vomiting Denies urinary frequency, Denies difficulty voiding and Denies dysuria Neuro Reports Normal hearing present, Denies confusion, Denies dizziness, Denies syncope and Denies weakness Psych Denies confusion Physical exam (Primary Care) Vital Signs: Last Vital Signs Pulse 66 10/02/24 16:21 BP 130/100 H 10/02/24 16:21 Pulse Ox 99 10/02/24 16:21 Oxygen Delivery Method Room Air 10/02/24 16:21 BMI result Body Mass Index 31.8 Tobacco/Smoking Status: Tobacco use Status Tobacco use date assessed 10/02/24 10/02/24 16:12 Patient Tobacco Use Status Never used Tobacco 10/02/24 16:12 Tobacco use type 06/26/23 10:28 e-Cigarette/Vaping Use Never Used 10/02/24 16:12 PHQ-9: PHQ-9 Score PHQ-9: Total score 6 10/02/24 16:26 Thrive Assessment: Date of Thrive Assessment Date Thrive assessed 10/02/24 10/02/24 16:12 Currently or been in a relationship where the following occur: No concerns reported Const General: No confusion Orientation/consciousness: No confusion HENMT Head: Yes normocephalic Ears: external ears normal and TM's normal bilaterally Face and sinus: Yes normal facial exam Mouth: moist mucous membranes Throat: Yes tonsils normal Eyes Conjunctivae: conjunctivae normal Pupils: Equal, round and reactive pupils present and Pupil accommodation reflex normal Direct Ophthalmoscopy: normal light reflex Neck Neck: No lymphadenopathy Thyroid: Thyroid normal Chest Chest palpation & inspection: normal inspection of the chest Resp Effort & Inspection: normal respiratory effort and no audible wheezes Auscultation: clear to auscultation bilaterally, no crackles, no wheezes and lung sounds not diminished Cardio Rate: regular rate Rhythm: regular rhythm Peripheral pulses: radial pulses present and dorsalis pedis present GI Palpation (GI): no masses Auscultation: normal bowel sounds and normoactive bowel sounds Rectal Exam - Female: deferred Skin General skin exam: no rashes or lesions noted Rashes: no rashes Neuro General: No confusion Cranial nerves: Yes Equal, round and reactive pupils present and Yes Normal hearing present Cognition (Neuro): normal cognition Gait exam (Neuro): Normal gait present Motor exam (neuro): 5/5 motor strength present throughout Deep tendon reflexes (DTR's): Right brachioradialis reflex intensity grade: 2+, Left brachioradialis reflex intensity grade: 2+, Right patellar reflex intensity grade: 2+ and Left patellar reflex intensity grade: 2+ Extrem General: No edema Office Procedures Flu Questionnaire Does the patient have a severe egg allergy?: No Does the patient have severe life threatening allergies?: No Does the patient have a fever or illness today?: No Has the patient ever had Guillain-Goshen Syndrome?: No Has the patient ever had any past reaction to a flu shot?: No Immunizations Fluarix Triv 4595-2199 (PF) 45 mcg (15 mcg x 3)/0.5 mL IM syringe Performing Provider: Conrad Simmons MD [place] [facility] [place] [facility] Administered by: JASVIR Garner on 10/02/24 16:20 Dose Route Admin Location Dispensed Lot Number Expiration Date ND Tester Sound 0.5 mL IM Left Deltoid 0.5 mL [id number] 04/05/25 90836-304-08 ContentRealtime VIS Given Date VIS Provided VIS Publication Date 10/02/24 Single Vaccine 21 Eligibility Eligibility Date Funding Source Not [facility] Eligible 10/02/24 Private Coding Level of Care Code Est Pt Prev Care 18-39y(20361) Diagnoses Annual physical exam Z00.00 Hypercholesterolemia E78.00 PCOS (polycystic ovarian syndrome) E28.2 Obesity (BMI 30-39.9) E66.9 Generalized anxiety disorder F41.1 Hyperglycemia R73.9 Additional Codes DIO-7 Assessment Billing - DIO-7 Assessment Tool: DIO-7 Assessment 20346 ([id number]) PHQ-9 - 18896 - PHQ-9 Billing: Yes ([id number]) Assessment & Plan Assessment & Plan (1) Annual physical exam: Code(s): Z00.00 - Encounter for general adult medical examination without abnormal findings Category: Medical (2) Hypercholesterolemia: Code(s): E78.00 - Pure hypercholesterolemia, unspecified Category: Medical (3) PCOS (polycystic ovarian syndrome): Code(s): E28.2 - Polycystic ovarian syndrome Category: Medical (4) Obesity (BMI 30-39.9): Code(s): E66.9 - Obesity, unspecified Category: Medical (5) Generalized anxiety disorder: Code(s): F41.1 - Generalized anxiety disorder Category: Medical (6) Hyperglycemia: Code(s): R73.9 - Hyperglycemia, unspecified Category: Medical Plan - Order repeat liver function tests - Perform abdominal ultrasound - Monitor blood glucose levels with a possibility of needing a fasting test - Discuss and plan further management of cholesterol levels - Address marijuana usage and its implications on health - Ensure compliance with medications like sertraline 50 mg Engaged in a thorough discussion regarding mildly elevated blood glucose and liver enzymes with emphasis on careful monitoring and diagnostic testing. Advised on the risks and management strategies for hypercholesterolemia, encouraging healthy lifestyle choices. Educated about the potential complications of marijuana use, especially in postoperative settings, recommending caution. Reviewed importance of completing the abdominal ultrasound and repeat liver function tests to assess liver health. Encouraged consistent medication adherence and promised to provide sertraline in manageable dosing to avoid pill splitting. Discussed results and the necessity for timely follow-ups, ensuring patient awareness. - Continue current medication regimen with sertraline 50 mg daily - Schedule and complete repeat liver function tests and abdominal ultrasound - Maintain a healthy diet and exercise regularly - Monitor blood glucose levels, possibly including a fasting test - Abstain from or limit marijuana usage to reduce health risks - Follow up for a review of upcoming test results to ensure thorough evaluation and management Orders: Orders Hemoglobin A1c Today R73.9 - Hyperglycemia, unspecified Free T4 (Free Thyroxine) Today R73.9 - Hyperglycemia, unspecified Vitamin B12 and Folate Today E78.00 - Pure hypercholesterolemia, unspecified US abdomen complete Today E78.00 - Pure hypercholesterolemia, unspecified, R79.89 - Other specified abnormal findings of blood chemistry Influenza [id number] Immunization Today Z23 - Encounter for immunization Comprehensive Met. Panel Today R73.9 - Hyperglycemia, unspecified Thyroid Stimulating Hormone Today R73.9 - Hyperglycemia, unspecified Lipid Panel Today E78.00 - Pure hypercholesterolemia, unspecified Complete Blood Count Auto Diff Today E78.00 - Pure hypercholesterolemia, unspecified Vitamin D 25-OH Total Today E78.00 - Pure hypercholesterolemia, unspecified Hepatitis B Profile Today E78.00 - Pure hypercholesterolemia, unspecified Medications: Changed From sertraline 50 mg (1/2 x 100 mg) PO DAILY 90 days 45 tabs 1RF F41.1 - Generalized anxiety disorder To sertraline 50 mg PO DAILY 90 days 90 tabs 1RF F41.1 - Generalized anxiety disorder
[2024-10-02 16:21] VITALS: BP 130/100; PULSE 66; O2SAT 99; BMI 31.8
[2024-10-02 16:44] VITALS: BP 120/80
== END 2024-10-02 16:57 | disposition home or self-care (01) ==
PROVIDERS: PCP Internal Medicine; Visit Provider Internal Medicine
DX: Z00.00 Encounter for general adult medical examination without abnormal findings (principal); E78.00 Pure hypercholesterolemia, unspecified; E66.9 Obesity, unspecified; Z68.31 Body mass index [BMI] 31.0-31.9, adult; E28.2 Polycystic ovarian syndrome; F41.1 Generalized anxiety disorder; R73.9 Hyperglycemia, unspecified; Z23 Encounter for immunization

== ENCOUNTER → 2024-10-02 15:57 | Outpatient (BNVA) | payer OTHER, SELFPAY | PROVIDERS: PCP Internal Medicine; Visit Provider Internal Medicine | DX: Z00.00 Encounter for general adult medical examination without abnormal findings (principal); Z23 Encounter for immunization; E78.00 Pure hypercholesterolemia, unspecified; E28.2 Polycystic ovarian syndrome; E66.9 Obesity, unspecified; Z68.31 Body mass index [BMI] 31.0-31.9, adult; F41.1 Generalized anxiety disorder; R73.9 Hyperglycemia, unspecified | CPT/HCPCS: 90471; 90656; 96127 ==

== ENCOUNTER 2024-11-02 07:49 | Outpatient (REF) | payer OTHER, SELFPAY ==
--- NOTE | ~2024-11-02 | US_ITS ---
CLINICAL HISTORY: R79.89 - Other specified abnormal findings of blood chemistry US abdomen complete Comparison: None Findings: The visualized pancreas is normal. The aorta and inferior vena cava are normal caliber. The liver is normal in size with diffuse increase of echogenicity. There is no intrahepatic bile duct dilatation. The common duct is 3.0 mm in diameter. The gallbladder is normal. There is no sonographic Mccullough sign. The main portal vein is antegrade. The right kidney is 11 cm in length. The left kidney is 11 cm in length. The spleen is normal. No ascites. IMPRESSION: Increase of echogenicity of the liver favored to represent hepatic steatosis. This document has been electronically signed by: Kelvin Dowell MD on 11/02/2024 12:54:15
--- OUTSIDE RECORDS SUMMARY | 2024-11-02 07:52 | XMS_ITS | Encounter Summary ---
Author Organization [facility] Address [address] [place] [address] Phone Care Team Providers Care Bariatric Physician Name Role Phone Anselmo Soto Primary Care Provider [phone] Encounter Details Date Type Department Care Team (Late st Contact Info) Description 05/23/2017 Conversion Encounter [facility] [address] [place] [address] Social History Tobacco Use Types Packs/Day Years Used Date Smoking Tobacco: Never Assessed Comments Unknown Sex and Gender Information Value Date Recorded Sex Assigned at Not on file Legal Sex Female 4:15 PM EDT Gender Identity Not on file Sexual Orientation Not on file documented as of this encounter Plan of Treatment Not on file documented as of this encounter Visit Diagnoses Not on filedocumented in this encounter Care Teams Bariatric Physician Relationship Specialty Start Date End Date Anselmo Soto [address] [place] [address] PCP - General 05/17/17 documented as of this encounter
--- OUTSIDE RECORDS SUMMARY | 2024-11-02 07:52 | XMS_ITS | Clinical Summary ---
Author Organization [facility] Address [address] [place] [address] Phone Care Team Providers Care Cinder Crusher Operator Name Role Phone Anselmo Soto Primary Care Provider [phone] Immunizations Name Administration Dates Next Due DTP 03/06/1999, 2,02/06/1988,10/11,1987 Hep B, ped/adol 12/07/1998,09/14/1998,08/10/1998 Hib (HbOC) 03/06/1999 IPV 03/06/1999, 2,02/06/1988,10/11,1987 MMR 12/07/1998,10/03/1988 Meningococcal Conj (Menactra) MCV4P 06/19/2006 Td (adult) (Tenivac), 5 Lf t etanus toxoid, PF, adsorbed 12/07/1998 Family History Relation Name Status Comments Brother 1 Alive Brother: Asthma , ADD/ADHD Brother 2 Alive Brother: Asthma , ADD/ADHD Father Alive Father: Alive a nd well Mother Alive Mother: Alive a nd well Sister 1 Alive Sister: Alive a nd well, Alive and well Sister 2 Alive Sister: Alive a nd well, Alive and well Social History Tobacco Use Types Packs/Day Years Used Date Smoking Tobacco: Never Assessed Comments Unknown Sex and Gender Information Value Date Recorded Sex Assigned at Not on file Legal Sex Female 4:15 PM EDT Gender Identity Not on file Sexual Orientation Not on file Plan of Treatment Health Maintenance Due Date Last Done Comments Varicella Vaccines (1 of 2 - 13+ 2-dose series) 2000 Consider Men B Vaccine (1 of 2 - Bexsero 2-dose series) 2003 DTaP,Tdap,and Td Vaccines (6 - Tdap) 03/06/2009 03/06/1999, 12/07/1998, 04/05/1992, Additional history exists Influenza Vaccines (#1) 2024 COVID-19 Vaccine (2023- season) 2024 Hepatitis B Vaccines Completed 12/07/1998, 09/14/1998, 08/10/1998 MMR Vaccines Completed 12/07/1998, 10/03/1988 HIB Vaccines Aged Out 03/06/1999 No longer eligi ble based on patient's age to complete this topic IPV Vaccines Completed 03/06/1999, 03/09, 02/06/1988, Additional history exists Meningococcal Vaccine Aged Out 06/19/2006 No edwin johnathon eligible based on patient's age to complete this topic HPV Vaccines Aged Out No longer eligi ble based on patient's age to complete this topic Hepatitis A Vaccines Aged Out No long er eligible based on patient's age to complete this topic Men B Vaccine Aged Out No longer elig ible based on patient's age to complete this topic Pneumococcal Vaccine Aged Out No long er eligible based on patient's age to complete this topic Care Teams Cinder Crusher Operator Relationship Specialty Start Date End Date Anselmo Soto [address] [place] [address] PCP - General 05/17/17
== END 2024-11-02 07:50 | disposition home or self-care (01) ==
LOC: HO.US 07:49
PROVIDERS: PCP Internal Medicine; Visit Provider Internal Medicine
DX: R79.89 Other specified abnormal findings of blood chemistry (principal); E78.00 Pure hypercholesterolemia, unspecified
CPT/HCPCS: 76700

== ENCOUNTER → 2024-11-02 07:50 | Outpatient (BNV) | payer OTHER, SELFPAY | PROVIDERS: PCP Internal Medicine; Visit Provider Nuclear Medicine | DX: K76.89 Other specified diseases of liver (principal) | CPT/HCPCS: 76700 ==

== ENCOUNTER 2025-05-27 09:36 | Outpatient (AMB) | payer OTHER, SELFPAY ==
[2025-05-27 09:50] VITALS: BP 130/90; PULSE 108; RESP 18; TEMP 36.2; O2SAT 96; BMI 31.2
--- NOTE | 2025-05-27 09:50 | A.OFFPC_ITS ---
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 Required: No Accompanied by: Self / Same As Patient Allergies No Known Allergies Allergy (Verified 05/27/25 09:51) Tobacco use date assessed: 05/27/25 Dental Screening Dental Screen Date: 05/27/25 Did you have a dental visit in the last 12 months?: Yes Did you have a dental problem in the last 6 months where you did not have access to dental care?: No Was dental information given to patient?: Patient has dentist [facility] Medical History Hyperglycemia Potential exposure to STD Encounter to discuss test results Encounter for annual routine gynecological examination PCOS (polycystic ovarian syndrome) Obesity (BMI 30-39.9) Irregular menses Anxiety and depression Vitamin D deficiency Hypercholesterolemia Gestational diabetes Kawasaki disease Surgical History No history of previous surgery Family History Mother Hypertension Anxiety Father Diabetes Social History Housing: Apartment Alcohol intake: current Alcohol intake frequency: holidays/special occasions only Comment: holiday 2 drinks Patient Tobacco Use Status: Never used Tobacco Years Smoked: MArijuana e-Cigarette/Vaping Use: Never Used Substance Use Type: Marijuana service: No Current occupational status: employed Current occupation: [employer] for [employer] Gender identity: Female Cognitive needs: No Hearing needs: No Vision needs: No Female Reproductive History Menstrual Age of Menarche: 15 Questionnaire PHQ-9 Over the last 2 weeks, how often have you been bothered by any of the following problems? 1. Little interest or pleasure in doing things: not at all 2. Feeling down, depressed, or hopeless: several days 3. Trouble falling or staying asleep, or sleeping too much: nearly every day 4. Feeling tired or having little energy: nearly every day 5. Poor appetite or overeating: not at all 6. Feeling bad about yourself - or that you are a failure or have let yourself or your family down: not at all 7. Trouble concentrating on things, such as reading the newspaper or watching television: several days 8. Moving or speaking so slowly that other people could have noticed. Or the opposite - being so fidgety or restless that you have been moving around a lot more than usual: more than half the days 9. Thoughts that you would be better off or of hurting yourself in some way: not at all Total score: 10 Source: Developed by Drs. Anselmo Davenport, Adalgisa Kelsey, Vicente Stephens and colleagues, with an educational cuate from [employer]. Thrive Questionnaire Date Thrive assessed: 05/27/25 I am a: Patient What is your living situation today?: I have a steady place to live Within the past 12 months, did the food you bought not last and you didn't have the money to get more?: Never true Within the past 12 months, did you worry whether your food would run out before you got money to buy more?: Never true Do you have trouble paying for medicines?: No Do you have trouble getting transportation to medical appointments?: No Do you have trouble paying your heating and electricity bill?: No Do you have trouble taking care of your child, family member or friend?: No Do you have trouble with day-to-day activities such as bathing, preparing meals, shopping, managing finances, etc.?: No Are you currently unemployed and looking for a job?: No Are you interested in more education?: No Please select the resources that you would like help with: None Currently or been in a relationship where the following occur: No concerns reported THRIVE Score: 0 AUDIT C Alcohol Use Questionnaire (AUDIT-C) 1. How often do you have a drink containing alcohol?: Monthly or less 2. How many drinks containing alcohol do you have on a typical day when you are drinking?: 3 or 4 3. How often do you have six or more drinks on one occasion?: Less than monthly Total Score: 3 DIO-7 AMB Questionnaire DIO-7 Date DIO - 7 assessed: 05/27/25 Feeling nervous, anxious, or on edge: 2 = More than half the days Not being able to stop or control worryin = More than half the days Worrying too much about different things: 2 = More than half the days Trouble relaxin = Nearly every day Being so restless that it is hard to sit still: 2 = More than half the days Becoming easily annoyed or irritable: 2 = More than half the days Feeling afraid as if something awful might happen: 3 = Nearly every day Total DIO-7 score (0-4 normal; 5-9 mild; 10-14 moderate; 15-21 severe): 16 Source: Developed by Drs. Anselmo Davenport, Adalgisa Kelsey, Vicente Stephens and colleagues, with an educational cuate from [employer]. Physical exam (Primary Care) Vital Signs: Last Vital Signs Temp 97.1 F 05/27/25 09:50 Pulse 108 H 05/27/25 09:50 Resp 18 05/27/25 09:50 BP 130/90 H 05/27/25 09:50 Pulse Ox 96 05/27/25 09:50 Oxygen Delivery Method Room Air 05/27/25 09:50 BMI result Body Mass Index 31.2 Tobacco/Smoking Status: Tobacco use Status Tobacco use date assessed 05/27/25 05/27/25 09:55 Patient Tobacco Use Status Never used Tobacco 05/27/25 09:55 Tobacco use type 06/26/23 10:28 e-Cigarette/Vaping Use Never Used 05/27/25 09:55 PHQ-9: PHQ-9 Score PHQ-9: Total score 10 05/27/25 09:55 Thrive Assessment: Date of Thrive Assessment Date Thrive assessed 05/27/25 05/27/25 09:55 Currently or been in a relationship where the following occur: No concerns r eported Const General: alert; No acute distress Eyes Conjunctivae: conjunctivae normal Resp Auscultation: clear to auscultation bilaterally Cardio Rate: regular rate Rhythm: regular rhythm GI Inspection: Yes normal to inspection Extrem General: Yes normal to inspection and No edema Coding Level of Care Code Est Pt Level 4 (12342) Complex EM visit Add On G2211 Diagnoses Hypercholesterolemia E78.00 Hyperglycemia R73.9 Obesity (BMI 30-39.9) E66.9 Hepatic steatosis K76.0 Generalized anxiety disorder F41.1 Assessment & Plan Assessment & Plan (1) Hypercholesterolemia: Code(s): E78.00 - Pure hypercholesterolemia, unspecified Category: Medical Plan: Avoid fried foods, chicken skin, eggs, butter margarine, pastries and meat. Be it pork or beef they have a lot of cholesterol LDL goal of less than 130 and tr iglyceride of less than 150 (2) Hyperglycemia: Code(s): R73.9 - Hyperglycemia, unspecified Category: Medical Plan: Patient is advised to repeat blood work for blood sugar checking (3) Obesity (BMI 30-39.9): Code(s): E66.9 - Obesity, unspecified Category: Medical Plan: Diet and exercise (4) Hepatic steatosis: Comment: 10/2024 Code(s): K76.0 - Fatty (change of) liver, not elsewhere classified Category: Medical Plan: Low-fat diet and exercise (5) Generalized anxiety disorder: Code(s): F41.1 - Generalized anxiety disorder Category: Medical Plan: Discussed about counseling and continue with present medication Plan History of Present Illness The patient is a 39-year-old female presenting for a follow-up visit to address multiple chronic conditions including hypercholesterolemia, hepatic steatosis, and anxiety disorder. She has a history of obesity and hypercholesterolemia, with her last LDL cholesterol level recorded at 137 mg/dL in May 2024. Her blood sugar was noted to be mildly elevated at 104 mg/dL, and liver enzymes were elevated, consistent with hepatic steatosis. The patient also has a diagnosis of Polycystic Ovary Syndrome (PCOS) and Generalized Anxiety Disorder, for which she is currently taking sertraline. She reports experiencing palpitations and a sensation of her body stopping while trying to sleep, which has led to panic attacks. Her last abdominal ultrasound in October 2023 confirmed hepatic steatosis. She denies any significant changes in bowel habits or urinary symptoms, and her physical activity includes efforts to maintain a low-fat diet and regular exercise. Health Maintenance - Diet and exercise: Emphasis on a low-fat diet and regular physical activity. - Blood work: Advised to repeat fasting blood work to monitor blood sugar and cholesterol levels. Social History - Exercise: Engages in regular physical activity as part of her health maintenance. - Diet: Follows a low-fat diet to manage her cholesterol levels. Review of Systems - Cardiovascular: Reports palpitations and a sensation of body stopping while trying to sleep. Denies chest pain or dyspnea. - Neurological: Reports feeling off balance and tingling in hands and legs. Denies dizziness or headaches. - Respiratory: Denies cough, dyspnea, or wheezing. - Gastrointestinal: Denies changes in bowel habits or abdominal pain. - Genitourinary: Denies urinary frequency, dysuria, or hematuria. - Dermatological: Denies rash or swelling. Physical Exam - Cardiovascular: Blood pressure measurement was attempted, but specific values were not documented. - Neurological: No dizziness reported, and no abnormalities noted during examination. - Respiratory: No shortness of breath or cough reported, and lungs were clear to auscultation. - Abdominal: No pain or swelling reported, and no abnormalities noted during examination. - General: No swelling or rash observed, and no sore throat reported. Results - Labs: Last blood work in May 2024 showed normal blood count, normal electrolytes, normal renal function, mildly elevated blood sugar at 104 mg/dL, elevated liver enzymes, and LDL cholesterol at 137 mg/dL. - Imaging: Abdominal ultrasound in October 2023 confirmed hepatic steatosis. Plan The patient is advised to continue with a low-fat diet and regular exercise to manage her hypercholesterolemia and obesity. Repeat fasting blood work is recommended to monitor blood sugar and cholesterol levels, with a specific LDL goal of less than 130 mg/dL and triglycerides less than 150 mg/dL. The patient should continue taking sertraline for her anxiety disorder and consider counseling as an adjunctive therapy. Monitoring for hepatic steatosis will continue, and the patient is encouraged to maintain hydration and report any new symptoms. Patient was informed and verbally consented to the use of an ambient scribe for clinic note documentation during this visit. Discussion Notes During the visit, I discussed with the patient the importance of maintaining a low-fat diet and regular exercise to manage her cholesterol and weight. We reviewed the need for repeat fasting blood work to monitor her blood sugar and cholesterol levels, aiming for an LDL goal of less than 130 mg/dL and triglycerides less than 150 mg/dL. I advised her to continue taking sertraline for her anxiety disorder and suggested considering counseling as an adjunctive therapy. We will continue to monitor her hepatic steatosis and I encouraged her to maintain hydration and report any new symptoms. Patient Instructions - Continue with a low-fat diet and regular exercise. - Schedule and complete fasting blood work to monitor blood sugar and cholesterol levels. - Continue taking sertraline as prescribed and consider counseling. - Maintain hydration and report any new symptoms. Orders: Orders Hemoglobin A1c Today R73.9 - Hyperglycemia, unspecified Free T4 (Free Thyroxine) Today R73.9 - Hyperglycemia, unspecified Thyroid Stimulating Hormone Today R73.9 - Hyperglycemia, unspecified Complete Blood Count Auto Diff Today R73.9 - Hyperglycemia, unspecified Lipid Panel Today E78.00 - Pure hypercholesterolemia, unspecified Vitamin D 25-OH Total Today E78.00 - Pure hypercholesterolemia, unspecified UA CC w/rflx Micro + Cult Today E78.00 - Pure hypercholesterolemia, unspecified, R30.0 - Dysuria Comprehensive Met. Panel Today R73.9 - Hyperglycemia, unspecified Vitamin B12 and Folate Today E78.00 - Pure hypercholesterolemia, unspecified
[2025-05-27 10:04] VITALS: BP 130/80; PULSE 80
--- OUTSIDE RECORDS SUMMARY | 2025-05-27 10:53 | XMS_ITS | Clinical Summary ---
Author Organization [facility] Address [address] [place] [address] Phone Care Team Providers Care Bobbin Cleaner Hand Name Role Phone Anselmo Soto Primary Care Provider [phone] Immunizations Immunization Administration Dates Next Due DTP 03/06/1999, 2,02/06/1988,10/11,1987 [...] of 2 - 13+ 2-dose series) 2000 DTaP,Tdap,and Td Vaccines (6 - Tdap) 03/06/2009 03/06/1999, 12/07/1998, 04/05/1992, Additional history exists HPV Vaccines (1 - 3-dose SCDM series) 2014 COVID-19 Vaccine ( season) 2024 Influenza Vaccines (#1) 2025 Hepatitis B Vaccines Completed 12/07/1998, 09/14/1998, 08/10/1998 [...] age to complete this topic Care Teams Bobbin Cleaner Hand Relationship Specialty Start Date End Date Anselmo Soto [address] [place] [id number] PCP - General 05/17/17
== END 2025-05-27 10:15 | disposition home or self-care (01) ==
LOC: HO.HMCH 09:37
PROVIDERS: PCP Internal Medicine; Visit Provider Internal Medicine
DX: E78.00 Pure hypercholesterolemia, unspecified (principal); R73.9 Hyperglycemia, unspecified; E66.9 Obesity, unspecified; Z68.31 Body mass index [BMI] 31.0-31.9, adult; K76.0 Fatty (change of) liver, not elsewhere classified; F41.1 Generalized anxiety disorder

== ENCOUNTER 2025-05-29 08:31 | Outpatient (REF) | payer OTHER, SELFPAY ==
[2025-05-29 08:48] LABS: MANUAL DIFF FLAG NO
[2025-05-29 09:50] LABS: Hematocrit 37.4 % (37.0-47.0); Hemoglobin 12.7 g/dl (12.0-16.0); Imm Gran Abs Auto 0.03 X10*3/uL (0.00-0.03); Imm Gran Pct Auto 0.4 % (0.0-0.4); Lymphocytes Absolute Auto 2.4 X10*3/uL (1.2-4.9); Mean Corpuscular HGB Conc 34.0 g/dl (31.0-35.0); Mean Corpuscular Hemoglobin 28.7 pg (27.0-33.0); Mean Corpuscular Volume 84.4 fL (80.0-98.0); NRBC Abs Auto 0.000 X10*3/uL (0.0-0.012); NRBC Pct Auto 0.0 /100WBC (0.0-0.2); Platelet Count 322 X10*3/uL (160-400); Red Blood Count 4.43 X10*6/uL (4.20-5.50); White Blood Count 7.1 X10*3/uL (4.8-10.8)
[2025-05-29 10:08] LABS: Hemoglobin A1C 123.7951 umol/L; Total Hemoglobin (HGBA1C) 3448.0956 umol/L
[2025-05-29 10:38] LABS: Appearance Urine Cloudy; Glucose Urine UA Negative (Negative); PH 6.5 (5.0-9.0); Specific Gravity - Urine 1.010 (1.005-1.025); UMIC TRIGGER UACC YES
[2025-05-29 10:41] LABS: UACC Culture Trigger YES
[2025-05-29 11:33] LABS: Alanine Aminotransferase 19 U/L (0-31); Albumin Level 4.5 g/dL (3.5-5.0); Alkaline Phosphatase 72 U/L (39-117); Anion Gap 14 (12-20); Aspartate Amino Transferase 20 U/L (5-31); Blood Urea Nitrogen 12 mg/dL (9-16); Calcium 9.3 mg/dL (8.4-10.2); Carbon Dioxide 25 mmol/L (22-29); Chloride 105 mmol/L (96-108); Cholesterol 227 mg/dL (<200); Estimated Glomerular Filt Rate > 60; Potassium 4.0 mmol/L (3.3-5.1); Sodium 140 mmol/L (135-145); Total Protein 7.3 g/dL (6.5-8.0); Triglycerides 100 mg/dL (<150)
[2025-05-29 11:34] LABS: HBc Num1 0.05 S/CO (0.00-0.79)
[2025-05-29 11:45] LABS: Free T4 (Free Thyroxine) 0.92 ng/dL (0.71-1.85); Thyroid Stimulating Hormone 1.25 uIU/mL (0.32-4.0)
[2025-05-29 11:53] LABS: Folate 11.7 ng/mL (> or = 4.0); Vitamin B12 672 pg/mL (200-900)
[2025-05-29 12:14] LABS: HBS Num1 11.03 mIU/mL (0-7.99); HBsAGNum1 0.47 S/CO (0.00-0.99); HDL Cholesterol 52 mg/dL (>40); Hepatitis B Surface Antigen Negative (Negative)
[2025-05-29 14:33] LABS: HBS Num2 11.48 mIU/mL (0-7.99); HBS Num3 10.47 mIU/mL (0-7.99); ~Hepatitis B Surface Antibody GRAYZONE (Nonreactive)
== END 2025-05-29 08:32 | disposition home or self-care (01) ==
LOC: HO.LAB 08:31
PROVIDERS: PCP Internal Medicine; Visit Provider Internal Medicine
DX: E78.00 Pure hypercholesterolemia, unspecified (principal); R73.9 Hyperglycemia, unspecified
CPT/HCPCS: 36415; 80053; 80061; 81001; 82306; 82607; 82746; 83036; 84439; 84443; 85025; 86704; 86706; 87086; 87340

== ENCOUNTER 2025-07-26 16:33 | Outpatient (AMB) | payer OTHER, SELFPAY ==
[2025-07-26 16:42] VITALS: BP 118/86; PULSE 68; TEMP 36.3; O2SAT 96; BMI 31.7
--- NOTE | 2025-07-26 16:42 | MHC.PC.OV ---
Vital Signs 07/26/25 16:42 Height 5 ft 5 in Weight 190 lb 4 oz BMI 31.7 BP 118/86 Blood Pressure Location Lt brachial Position Sitting Pulse 68 Pulse Source Pulse Oximeter Temp 97.3 F Temp Source Temporal Artery Scan Pulse Oximetry (%) 96 Oxygen Delivery Method Room Air Intake Visit Reasons: Medication review Allergies No Known Allergies Allergy (Verified 07/26/25 16:44) Medication List - Last Reconciled 07/26/25 by Conrad Simmons MD sertraline 50 mg PO DAILY 90 days Tobacco use date assessed: 07/26/25 Dental Screening Dental Screen Date: 07/26/25 Did you have a dental visit in the last 12 months?: Yes Did you have a dental problem in the last 6 months where you did not have access to dental care?: No Was dental information given to patient?: Patient has dentist [facility] Medical History Hyperglycemia Potential exposure to STD Encounter to discuss test results Encounter for annual routine gynecological examination PCOS (polycystic ovarian syndrome) Obesity (BMI 30-39.9) Irregular menses Anxiety and depression Vitamin D deficiency Hypercholesterolemia Gestational diabetes Kawasaki disease Surgical History No history of previous surgery Family History Mother Hypertension Anxiety Father Diabetes Social History Housing: Apartment Alcohol intake: current Alcohol intake frequency: holidays/special occasions only Comment: holiday 2 drinks Patient Tobacco Use Status: Never used Tobacco Years Smoked: MArijuana e-Cigarette/Vaping Use: Never Used Substance Use Type: Marijuana service: No Current occupational status: employed Current occupation: [employer] Gender identity: Female Cognitive needs: No Hearing needs: No Vision needs: No Female Reproductive History Menstrual Age of Menarche: 15 Questionnaire PHQ-9 Over the last 2 weeks, how often have you been bothered by any of the following problems? 1. Little interest or pleasure in doing things: not at all 2. Feeling down, depressed, or hopeless: several days 3. Trouble falling or staying asleep, or sleeping too much: nearly every day 4. Feeling tired or having little energy: nearly every day 5. Poor appetite or overeating: not at all 6. Feeling bad about yourself - or that you are a failure or have let yourself or your family down: not at all 7. Trouble concentrating on things, such as reading the newspaper or watching television: several days 8. Moving or speaking so slowly that other people could have noticed. Or the opposite - being so fidgety or restless that you have been moving around a lot more than usual: more than half the days 9. Thoughts that you would be better off or of hurting yourself in some way: not at all Total score: 10 Source: Developed by Drs. Anselmo Davenport, Adalgisa Kelsey, Vicente Stephens and colleagues, with an educational cuate from [employer]. Thrive Questionnaire Date Thrive assessed: 05/25/25 I am a: Patient What is your living situation today?: I have a steady place to live Within the past 12 months, did the food you bought not last and you didn't have the money to get more?: Never true Within the past 12 months, did you worry whether your food would run out before you got money to buy more?: Never true Do you have trouble paying for medicines?: No Do you have trouble getting transportation to medical appointments?: No Do you have trouble paying your heating and electricity bill?: No Do you have trouble taking care of your child, family member or friend?: No Do you have trouble with day-to-day activities such as bathing, preparing meals, shopping, managing finances, etc.?: No Are you currently unemployed and looking for a job?: No Are you interested in more education?: No Please select the resources that you would like help with: None Currently or been in a relationship where the following occur: No concerns reported THRIVE Score: 0 AUDIT C Alcohol Use Questionnaire (AUDIT-C) 1. How often do you have a drink containing alcohol?: Monthly or less 2. How many drinks containing alcohol do you have on a typical day when you are drinking?: 3 or 4 3. How often do you have six or more drinks on one occasion?: Never Total Score: 2 DIO-7 AMB Questionnaire DIO-7 Date DIO - 7 assessed: 05/27/25 Feeling nervous, anxious, or on edge: 2 = More than half the days Not being able to stop or control worryin = More than half the days Worrying too much about different things: 2 = More than half the days Trouble relaxin = Nearly every day Being so restless that it is hard to sit still: 2 = More than half the days Becoming easily annoyed or irritable: 2 = More than half the days Feeling afraid as if something awful might happen: 3 = Nearly every day Total DIO-7 score (0-4 normal; 5-9 mild; 10-14 moderate; 15-21 severe): 16 Source: Developed by Drs. Anselmo Davenport, Adalgisa Kelsey, Vicente Stephens and colleagues, with an educational cuate from [employer]. Physical exam (Primary Care) Vital Signs: Last Vital Signs Temp 97.3 F 07/26/25 16:42 Pulse 68 07/26/25 16:42 BP 118/86 07/26/25 16:42 Pulse Ox 96 07/26/25 16:42 Oxygen Delivery Method Room Air 07/26/25 16:42 BMI result Body Mass Index 31.7 Tobacco/Smoking Status: Tobacco use Status Tobacco use date assessed 07/26/25 07/26/25 16:46 Patient Tobacco Use Status Never used Tobacco 07/26/25 16:46 Tobacco use type 06/26/23 10:28 e-Cigarette/Vaping Use Never Used 07/26/25 16:46 PHQ-9: PHQ-9 Score PHQ-9: Total score 10 07/26/25 16:48 Thrive Assessment: Date of Thrive Assessment Date Thrive assessed 05/25/25 07/26/25 16:46 Currently or been in a relationship where the following occur: No concerns reported Const General: alert; No acute distress Eyes Conjunctivae: conjunctivae normal Resp Auscultation: clear to auscultation bilaterally Cardio Rate: regular rate Rhythm: regular rhythm GI Inspection: Yes normal to inspection Extrem General: Yes normal to inspection and No edema Office Procedures Flu Questionnaire Does the patient have a severe egg allergy?: No Does the patient have severe life threatening allergies?: No Does the patient have a fever or illness today?: No Has the patient ever had Guillain-Page Syndrome?: No Has the patient ever had any past reaction to a flu shot?: No Immunizations Fluarix [id number] (PF) 45 mcg (15 mcg x 3)/0.5 mL IM syringe Performing Provider: Conrad Simmons MD [facility] Administered by: Flores Nam CMA on 07/26/25 16:49 Dose Route Admin Location Dispensed Lot Number Expiration Date [employer] 0.5 mL IM Left Deltoid 0.5 mL [id number] 04/05/26 [id number] [employer] VIS Given Date VIS Provided VIS Publication Date 07/26/25 Single Vaccine 24 Eligibility Eligibility Date Funding Source Not [facility] Eligible 07/26/25 Private Coding Level of Care Code Est Pt Level 4 (71489) Complex EM visit Add On G2211 Diagnoses Obesity (BMI 30-39.9) E66.9 Hepatic steatosis K76.0 Hypercholesterolemia E78.00 Generalized anxiety disorder F41.1 Assessment & Plan Assessment & Plan (1) Obesity (BMI 30-39.9): Code(s): E66.9 - Obesity, unspecified Category: Medical Plan: Diet and exercise (2) Hepatic steatosis: Comment: 10/2024 Code(s): K76.0 - Fatty (change of) liver, not elsewhere classified Category: Medical Plan: Low-fat diet and exercise (3) Hypercholesterolemia: Code(s): E78.00 - Pure hypercholesterolemia, unspecified Category: Medical Plan: Avoid fried foods, chicken skin, eggs, butter margarine, pastries and meat. Be it pork or beef they have a lot of cholesterol LDL goal of less than 130 and triglyceride of less than 150 (4) Generalized anxiety disorder: Code(s): F41.1 - Generalized anxiety disorder Category: Medical Plan: Continue with sertraline presently Plan History of Present Illness The patient is a 40-year-old female presenting for a follow-up visit after recent blood work and management of chronic conditions. She has a history of hypercholesterolemia, with LDL cholesterol levels increasing from 134 mg/dL in 2022 to 155 mg/dL currently. Despite normal renal function, blood sugar, and liver function, her cholesterol remains elevated. The patient is advised to maintain a low-fat diet and exercise regimen to achieve an LDL goal of less than 130 mg/dL. The patient also has a history of generalized anxiety disorder, currently managed with sertraline. She reports increased anxiety and depression over the past few months, prompting a discussion about increasing her medication dosage and considering counseling therapy. Additionally, the patient has a diagnosis of polycystic ovary syndrome (PCOS) and hepatic steatosis, which are being monitored. Her vitamin D levels are slightly low at 28 ng/mL, and she is advised to monitor this as well. Health Maintenance - Diet: Advised to follow a low-fat diet to manage cholesterol levels. - Exercise: Encouraged regular physical activity to support overall health and cholesterol management. - Vaccination: Received flu vaccination recently. Social History - Exercise: Engages in regular physical activity as part of health maintenance. - Diet: Follows a low-fat diet to manage cholesterol levels. Review of Systems - Psychiatric: Reports increased anxiety and depression over the past few months. - Respiratory: Denies cough or respiratory symptoms. Physical Exam - Cardiovascular: Blood pressure normal. Results - Labs: Normal blood count, electrolytes, renal function, blood sugar, and liver function. - Cholesterol: Elevated LDL at 155 mg/dL. - Vitamin D: Slightly low at 28 ng/mL. - Urinalysis: Presence of white blood cells. Plan Patient was informed and verbally consented to the use of an ambient scribe for clinic note documentation during this visit. 1. Hypercholesterolemia The patient is advised to maintain a low-fat diet and regular exercise to manage her elevated LDL cholesterol, which is currently at 155 mg/dL. The goal is to reduce LDL levels to below 130 mg/dL. Medication is not currently recommended due to the patient's young age and absence of significant family history of cardiovascular events. 2. Generalized Anxiety Disorder The patient reports increased anxiety and depression, and a decision was made to increase her sertraline dosage from 50 mg to 100 mg. A referral for counseling therapy was also provided to address her mental health concerns. 3. Hepatic Steatosis The patient is advised to continue monitoring her hepatic steatosis, with lifestyle modifications including diet and exercise to manage her condition. 4. Polycystic Ovary Syndrome (Pcos) The patient is advised to continue monitoring her PCOS, with lifestyle modifications including diet and exercise to manage her condition. Discussion Notes During the visit, I discussed with the patient the importance of managing her hypercholesterolemia through lifestyle changes, emphasizing a low-fat diet and regular exercise to achieve her LDL goal of less than 130 mg/dL. We also addressed her increased anxiety and depression, deciding to increase her sertraline dosage and provide a referral for counseling therapy. I advised her to monitor her hepatic steatosis and PCOS with lifestyle modifications. Patient Instructions - Follow a low-fat diet to help manage cholesterol levels. - Engage in regular physical activity to support overall health. - Monitor anxiety and depression symptoms, and follow up with counseling therapy as referred. - Continue monitoring hepatic steatosis and PCOS with lifestyle modifications. Orders: Orders Influenza [id number] Immunization Today Z23 - Encounter for immunization Referrals Psychiatry Referral F41.1 - Generalized anxiety disorder Medications: Changed From sertraline 50 mg PO DAILY 90 days 90 tabs 1RF F41.1 - Generalized anxiety disorder To sertraline 100 mg PO DAILY 90 tabs 1RF 90 days F41.1 - Generalized anxiety disorder
== END 2025-07-26 17:11 | disposition home or self-care (01) ==
LOC: HO.HMCH 16:34
PROVIDERS: PCP Internal Medicine; Visit Provider Internal Medicine
DX: E78.00 Pure hypercholesterolemia, unspecified (principal); E66.9 Obesity, unspecified; Z68.31 Body mass index [BMI] 31.0-31.9, adult; K76.0 Fatty (change of) liver, not elsewhere classified; F41.1 Generalized anxiety disorder; Z23 Encounter for immunization

== ENCOUNTER → 2025-07-26 16:33 | Outpatient (BNVA) | payer OTHER, SELFPAY | PROVIDERS: PCP Internal Medicine; Visit Provider Internal Medicine | DX: K76.0 Fatty (change of) liver, not elsewhere classified (principal); E78.00 Pure hypercholesterolemia, unspecified; F41.1 Generalized anxiety disorder; E28.2 Polycystic ovarian syndrome; E66.9 Obesity, unspecified; Z23 Encounter for immunization; Z68.31 Body mass index [BMI] 31.0-31.9, adult | CPT/HCPCS: 90471; 90656 ==